=== PATIENT | female | born 1990 | race Caucasian/White ===

== ENCOUNTER 2018-08-12 11:02 | Inpatient (IN) | payer BC ==
[2018-08-12] MEDS ORDERED: ISOVUE-370 76%-LOCM 1 ML ONE (11:12)
[2018-08-12 11:53] LABS: #Eosinphils 0.2 thou/uL (0.0-0.7); #Lymphocytes 1.3 thou/uL (1.20-3.40); #Monocytes 0.4 thou/uL (0.11-0.59); #Neutrophils 15.1 thou/uL (1.40-6.50); %Eosinophils 0.9 % (0.0-10.0); %Lymphocytes 7.9 % (21.0-51.0); %Monocytes 2.2 % (0.0-10.0); %Neutrophils 88.9 % (42.0-75.0); Hemoglobin 6.4 g/dL (12.0-16.0); Mean Corpuscular HGB CONC 33.4 g/dL (32.0-36.0); Mean Corpuscular Hemoglobin 28.1 pg (27.0-31.0); Mean Corpuscular Volume 83.9 fL (78.0-98.0); Mean Platelet Volume 7.1 fL (7.4-10.4); Platelet Count 466 thou/uL (130-400); Red Blood Cell (RBC) Count 2.27 mill/uL (4.20-5.40); White Blood Cell (WBC) Count 16.9 thou/uL (4.8-10.8)
[2018-08-12 11:58] LABS: INR-International Normal Ratio 1.1; PTT 25.2 SEC (22.9-36.1); Prothrombin Time 13.8 SEC (12.0-14.7)
[2018-08-12 12:06] LABS: ALT (SGPT) 31 U/L (8-55); AST (SGOT) 21 U/L (5-34); Albumin 4.4 g/dL (3.5-5.0); Alkaline Phosphatase 105 U/L (40-150); Anion Gap 13 mmol/L (10-20); BUN (Urea Nitrogen) 14 mg/dL (7.0-18.7); Bilirubin, Total 3.8 mg/dL (0.2-1.2); Calc. Creatinine Clearance 0 mL/min (70-130); Calcium 9.7 mg/dL (7.8-10.44); Carbon Dioxide 22 mmol/L (22-29); Chloride 106 mmol/L (98-107); Estimated GFR-MDRD 85; Globulin 3.7 g/dL (2.4-3.5); Glucose 256 mg/dL (70-105); Potassium 4.1 mmol/L (3.5-5.1); Protein, Total 8.1 g/dL (6.0-8.3); Sodium 137 mmol/L (136-145)
--- NOTE | 2018-08-12 12:18 | CT ---
BRAIN CT WITHOUT IV CONTRAST: History: Altered mental status. Left frontal headache. FINDINGS: There is evidence for low lying cerebellar tonsils raising concern for the possibility of Chiari I ma lformation. No hydrocephalus. No focal mass or midline shift. No acute hemorrhage. Visualized sinuses and mastoids are clear. IMPRESSION: Evidence for possible low lying cerebellar tonsils and Chiari I type malformation. Consider non-emerg ent follow up brain MRI without IV contrast. Findings were discussed with Dr. Blunt at 12:10 p.m. Brandy CRISTOBAL POS: [facility]
[2018-08-12 12:19] LABS: Bilirubin Negative (Negative); Blood, Urine Negative (Negative); Clarity CLEAR (Clear); Glucose, Urine (Dipstick) 500 mg/dL (Negative); Leukocyte Negative (Negative); Nitrite Negative (Negative); Protein, Urine (Dipstick) Negative (Neg-Trace); Specific Gravity, Urine 1.013 (1.002-1.036)
[2018-08-12 12:23] LABS: Pregnancy Test - Urine (BHCG) Negative (Negative); Pregu Control Background? CLEAR/WHITE (CLR/WHITE); Pregu Control Bar Appear? YES (CONTROL BAR); Specific Gravity 1.013 (1.002-1.036)
[2018-08-12 12:55] LABS: HBCM Index 0.06 S/CO (0-0.79); HBSAg Index 0.23 S/CO (0-0.99); Hep A IgM AB Non-Reactive (NonReactive); Hep A IgM S/CO 0.14 S/CO (0-0.79); Hep B Surf Ag Non-Reactive S/CO (NonReactive); Hep C IgG Ab Non-Reactive (NonReactive); Hep C Index 0.08 S/CO (0-0.79); Hepatitis B Core IgM Abs Non-Reactive (NonReactive)
[2018-08-12] MEDS ORDERED: Nitroglycerin 0.4 MG TAB (25 Tab Bottle) SL PRN (13:57)
[2018-08-12] MEDS ORDERED: Bisacodyl 5 MG TAB PO PRN (13:57)
[2018-08-12] MEDS ORDERED: hydrALAZINE 20 MG/ML VIAL SLOW IVP PRN (13:57)
[2018-08-12] MEDS ORDERED: Acetaminophen 325 MG TAB PO PRN (13:57)
[2018-08-12] MEDS ORDERED: Bisacodyl 10 MG SUPP PR PRN (13:57)
[2018-08-12] MEDS ORDERED: Senokot S 8.6-50 MG TAB PO PRN (13:57)
[2018-08-12] MEDS ORDERED: Ondansetron PF 4 MG/2 ML Vial IVP PRN (13:57)
[2018-08-12 14:29] LABS: Amphetamine Not Detected (NotDetected); Barbiturates Screen Not Detected (NotDetected); Benzodiazepine Screen Not Detected (NotDetected); Cocaine Metabolite Screen Not Detected (NotDetected); Medtox Control Line Valid? VALID (VALID); Medtox Reader # READER 1; Methadone Not Detected (NotDetected); Methamphetamine Not Detected (NotDetected); Opiate Screen Not Detected (NotDetected); Oxycodone Screen Not Detected (NotDetected); Phencyclidine (PCP) Not Detected (NotDetected); THC/Cannabinoid Screen Not Detected (NotDetected); Tricyclic Screen Not Detected (NotDetected)
[2018-08-12 16:25] LABS: Mean Corpuscular HGB CONC 33.4 g/dL (32.0-36.0); Mean Platelet Volume 7.1 fL (7.4-10.4); Platelet Count 445 thou/uL (130-400); RBC Distribution Width 14.9 % (11.5-14.5); White Blood Cell (WBC) Count 19.6 thou/uL (4.8-10.8)
[2018-08-12 16:42] LABS: Anisocytosis SLIGHT = 6-15 cells (100X) (0-5/hpf); Band 11 % (5-11); Lymphocytes 11 % (21-51); MDiff Complete? YES; Monocytes 4 % (0-10); Myelocyte 1 % (0-0); Neutrophil 73 % (42-75); Ovalocytes SLIGHT = 2-5 cells (100X) (0-1/hpf); Platelet Morphology Comment Appears Increased; Polychromasia MODERATE = 3-4 cells (100X) (0-2/hpf)
--- NOTE | 2018-08-12 17:07 | HP ---
PRIMARY CARE PHYSICIAN: None. CHIEF COMPLAINT: Weakness, dark urine, and shortness of breath. HISTORY OF PRESENTING ILLNESS: Ms. Rey is a very pleasant 28-year-old female without any significant past medical history, who presented to the emergency room from Urgent Care. History is mainly obtained by the patient herself and the electronic medical records have been reviewed. Ms. Rey reports that she has been feeling somewhat weak and tired lately. She has been noticing some very dark urine which looked brown in nature and presented to Urgent Care. She was diagnosed as having urinary tract infection and was prescribed Bactrim. She reports that she only took one dose, but her symptoms progressed even before she started the medication. She started to get pale and yellow and it got worse and she came to the ER today. In the emergency room, she was found to be hemodynamically stable, but however, she had dramatic anemia with a hemoglobin of 6.4 with elevated reticulocyte count. She also was found to have elevated bilirubin, which was largely indirect in nature, elevated LDH. Her PT, PTT, and INR were unremarkable. Urine had no blood or bilirubin in it. She was diagnosed as having hemolytic anemia of unknown chronicity and is now being admitted for further evaluation and care. She has been somewhat tachycardic with heart rate in in the emergency room. She has received 1 unit of packed RBC in the ER. She denies any blood in her stools, any black-colored stools. She denies any coughing or vomiting up of blood. Her periods are irregular and she had one episode of menorrhagia two months ago when she had excessive bleeding for almost a month, but that has stopped two months ago. She denies any recent sick contacts or any acute illnesses recently. The patient endorses on and off headaches for the last few weeks. PAST MEDICAL HISTORY: None. Reviewed with the patient. PAST SURGICAL HISTORY: None. Reviewed with the patient. FAMILY HISTORY: Significant for multiple cancers in her family including lung cancer, breast cancer, and leukemia in her grandfather. Multiple family members with diabetes and hypothyroidism. She also has had one sister who had cholecystectomy for gallstones 10 years ago. Denies any family history of bleeding or clotting disorders. No family history of inheritable diseases. SOCIAL HISTORY: She has one child and is currently working. No history of drug, tobacco, or alcohol abuse. ALLERGIES: NO KNOWN MEDICATION ALLERGIES. CURRENT MEDICATIONS: None. REVIEW OF SYSTEMS: A 12-point review of system is done and it is negative except for those mentioned in the history and physical. LABORATORY DATA: Her CBC shows WBCs of 16.9 with 88% neutrophils, hemoglobin 6.4, and reticulocyte count 11. Coagulation studies within normal limits. Serum chemistries show glucose 256, calcium 9.7, total bilirubin 3.8 with direct bilirubin 0.9. Liver enzymes unremarkable. LDH 281. Urinalysis showed glucosuria, ketonuria. Urine drug screen negative. Urine test negative. Serology for acute hepatitis negative. CT scan of the brain shows incidental findings of low cerebellar tonsils and Chiari type 1 malformation. PHYSICAL EXAMINATION: VITAL SIGNS: Heart rate anywhere from to 115. Blood pressure systolic 138 to 170 with diastolic blood pressure anywhere from 90 to 110. Oxygen saturation 98% on room air. GENERAL: No acute distress. Awake, alert, and oriented x3. She does appear pale and jaundiced at the same time. HEENT: Conjunctival pallor and scleral icterus, mild, noticed. No oropharyngeal exudate or erythema. Head is normocephalic and atraumatic. Pupils are equal and reactive to light and accommodation. Extraocular movement intact. NECK: Supple without any lymphadenopathy, JVD, or bruit. CHEST: Clear to auscultation without any wheezing, rales or rhonchi. HEART: Rate and rhythm regular without any murmurs, rubs, or gallops. ABDOMEN: Obese, soft, nontender, and nondistended. Positive bowel sounds. EXTREMITIES: Free of any cyanosis, clubbing, or edema. NEUROLOGICAL: Nonfocal. SKIN: Free of any rashes or bruises. Feels warm and dry to touch. PSYCHIATRIC: Normal affect. IMPRESSION AND PLAN: 1. Acute anemia due to hemolysis. The etiology is rather unclear at this point. She does not have any evidence to suggest disseminated intravascular coagulation or thrombotic thrombocytopenic purpura. No family history of hereditary history to suggest intrinsic membrane problems like hereditary spherocytosis or G6PD deficiency. We will send the smear for peripheral blood smear by review by pathologist to look for Saurabh bodies, bite cells, schistocytes, etc. We will request consultation with Hematology as well. At this time, we will also check out autoimmune panel with Wan test and CÉSAR screening. Haptoglobin levels have also been sent. We will check for mycoplasma IgG and IgM to rule out infectious causes. She will be started on gentle IV fluids and we will monitor H and H every 6 hours. She has received 1 unit of packed RBCs in the ER and we will maintain the hemoglobin level above 7 at this time. Further management will depend upon further investigations and her clinical course. She was not found to have any active bleeding ongoing at this time. We will also obtain a CT scan of the abdomen and pelvis without contrast to rule out splenomegaly or any lymphadenopathy to rule out occult cancers. Has no systemic symptoms or weight loss. 2. Leukocytosis with left shift. No evidence of infection at this time. Etiology is unclear. Likely reactive leukemoid reaction. We will repeat labs in the morning. 3. Hyperglycemia. We will check hemoglobin A1c given her significant family history of diabetes. 4. Morbid obesity. 5. Jaundice, secondary to unconjugated hyperbilirubinemia. Treat the underlying cause. 6. Deep venous thrombosis and gastrointestinal prophylaxis. We will only use SCDs and avoid any therapeutic deep vein thrombosis prophylaxis. 7. Disposition: Ms. Rey is currently being admitted to [facility] with acute hemolytic anemia and hemodynamic instability. Estimated length of stay at this time is at least 2 to 3 midnights. Further management will depend upon her clinical course. Job ID: [id number]
[2018-08-12] MEDS: Sodium Chloride 0.9% 1,000 ML IV SCH (17:34)
--- NOTE | 2018-08-12 17:42 | CT ---
CT ABDOMEN AND PELVIS WITH CONTRAST: 08/12/18 Multiple axial tomograms obtained through the abdomen and pelvis with IV enhancement. INDICATIONS: Hemolytic anemia. Splenomegaly/lymphoma. FINDINGS: The lung bases are clear. Liver unremarkable. The spleen size is upper normal measured at up to 14 cm. Pancreas unremarkable. A drenal glands normal. Kidneys unremarkable. Small bowel loops appear normal. Scattered small divertic favian are seen in the left colon. Aorta is normal in appearance. There is no evidence of adenopathy. Images through pelvis show prominent ovaries with follicles bilaterally. The uterus appears unremarka ble. No free fluid. Urinary bladder unremarkable. Osseous structures unremarkable. IMPRESSION: 1. Borderline splenomegaly. 2. CT abdomen and pelvis otherwise unremarkable. No evidence of adenopathy. POS: [facility]
[2018-08-12 18:08] VITALS: BMI 47.2
[2018-08-12] MEDS ORDERED: predniSONE 20 MG TAB PO SCH ×2 (18:45→21:00)
[2018-08-12 22:44] LABS: Hemoglobin 7.3 g/dL (12.0-16.0)
[2018-08-13 00:36] LABS: Hemoglobin 7.2 g/dL (12.0-16.0)
--- NOTE | 2018-08-13 01:37 | CON ---
DATE OF CONSULTATION: 08/12/2018 REASON FOR CONSULTATION: Hemolytic anemia. HISTORY OF PRESENT ILLNESS: A 28-year-old female with morbid obesity, presenting to [facility] ER with dark urine, jaundice, fatigue, and dyspnea on exertion. The patient initially presented to [facility] ER two days ago with dark urine and was given Bactrim for UTI. On Thursday morning, her urine was darker, she noticed that her eyes were yellowing, she had more fatigue, lightheadedness, headache, dyspnea on exertion, and took one dose of Bactrim and went back to the ER. Labs were checked at the ER and her hemoglobin was 7.6 and trended down to 6.1. The ER consulted Dr. Lisa over the phone, who recommended steroids and she received IV steroids at that time. She was kept overnight and hemoglobin did not improve and so, she was transferred to [place]. The patient has since received 1 unit of packed red blood cells and is currently pending a second unit. The patient had an ultrasound at [facility] that showed a fatty liver and had a CT of the abdomen and pelvis here that showed borderline splenomegaly with spleen up to 14 cm in size. The patient denies any recent illnesses or recent travel, though states she has been around some sick coworkers. She denies any sore throat, runny nose, congestion, or abdominal pain. She vomited after oral contrast for her CAT scan, otherwise no nausea or vomiting, no diarrhea or constipation. The only medicine she is on is control and she will take the occasional ibuprofen. She denies any herbal medicines or history of autoimmune disease. She has a family history of hypothyroidism, however, it is unsure if any of these are due to Kaykay disease. REVIEW OF SYSTEMS: A 10-point review of systems negative except as per HPI. PAST MEDICAL HISTORY: Morbid obesity. PAST SURGICAL HISTORY: None. FAMILY HISTORY: No family history of anemia or autoimmune disease known. Family history of lung cancer and breast cancer as well as leukemia in her grandfather. There is diabetes in her family though that she denies type 1 diabetes. SOCIAL HISTORY: One child, currently working. No tobacco, alcohol, or illicit drug use. No herbal medications. ALLERGIES: NO KNOWN MEDICATION ALLERGIES. CURRENT MEDICATIONS: Reviewed. PHYSICAL EXAMINATION: VITAL SIGNS: Temperature 98.1, pulse 123, respirations 18, saturating 97% on room air, blood pressure 138/95. GENERAL APPEARANCE: The patient is lying in bed, in no acute distress. HEENT: Normocephalic and atraumatic. Mild scleral icterus is present. CARDIOVASCULAR: Normal S1 and S2 with regular rhythm and rate without murmurs, rubs, or gallops. Mild tachycardia is present. LUNGS: Respirations are clear to auscultation bilaterally. ABDOMEN: Obese, but soft and nontender without any palpable hepatosplenomegaly. EXTREMITIES: No edema. LYMPHATICS: No palpable lymphadenopathy. SKIN: No rashes or bruises. NEUROLOGIC: Cranial nerves 2 through 12 are grossly intact and otherwise nonfocal. PSYCHIATRIC: Awake, alert, and oriented x3. LABORATORY DATA: Hemoglobin at [facility] 7.6 down to 6.1 and 6.4 on admission to [place] and currently 7.0, status post 1 unit of packed red blood cells. White blood cells 19.6, platelets 445. Retic count 11.0. Glucose 256. Total bilirubin 3.8, direct bilirubin 0.9, AST 21, ALT 31, alkaline phosphatase 105. LDH 281. Hepatitis panel negative. Urine shows 500 glucose and 40 ketones. IMAGING DATA: Ultrasound at [facility] showed hepatic steatosis, enlarged liver. CT scan at [place] shows an unremarkable liver, but does show spleen size in the upper normal, measured about 14 cm, consistent with borderline splenomegaly. 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 There is currently an unclear cause of her autoimmune hemolytic anemia, which can sometimes be caused by medications, specifically antibiotics, however, this started before she ever took a dose of Bactrim. She may have an underlying autoimmune disease given history of hypothyroidism in the family or some other underlying autoimmune disease process. CÉSAR screening is currently pending at this time. The patient is status post a dose of IV steroids at [facility] and I will start prednisone 1 mg/kg at this time. If the patient does not receive or improve with steroids, she may benefit from IVIG or may need rituximab. The patient is currently tachycardic, but otherwise stable and is receiving second unit of blood and would recommend transfusions to keep hemoglobin above 7. Recommend gastrointestinal prophylaxis while on steroids and I have started Protonix. We will need to aggressively monitor glucose as she has glucose in the urine and elevated glucose in blood with a large family history of diabetes and hemoglobin A1c has been checked to see if she does have diabetes. The patient's leukocytosis is likely leukemoid due to hemolysis as well as a dose of IV steroids she got at [facility], as her white blood cells there were only 12. We will follow along with you and monitor her response to steroids. Thank you for this consult. Job ID: [id number]
[2018-08-13] MEDS: Sodium Chloride 0.9% 1,000 ML IV SCH ×2 (06:54→23:50)
[2018-08-13 08:13] LABS: ALT (SGPT) 24 U/L (8-55); AST (SGOT) 18 U/L (5-34); Albumin 4.1 g/dL (3.5-5.0); Alkaline Phosphatase 94 U/L (40-150); Anion Gap 14 mmol/L (10-20); BUN (Urea Nitrogen) 15 mg/dL (7.0-18.7); Bilirubin, Total 3.2 mg/dL (0.2-1.2); Calc. Creatinine Clearance 273 mL/min (70-130); Calcium 9.2 mg/dL (7.8-10.44); Carbon Dioxide 20 mmol/L (22-29); Chloride 107 mmol/L (98-107); Estimated GFR-MDRD Greater than 90; Globulin 3.2 g/dL (2.4-3.5); Glucose 254 mg/dL (70-105); Potassium 4.3 mmol/L (3.5-5.1); Protein, Total 7.3 g/dL (6.0-8.3); Sodium 137 mmol/L (136-145)
[2018-08-13 08:34] LABS: Hemoglobin 7.4 g/dL (12.0-16.0); Mean Corpuscular HGB CONC 34.3 g/dL (32.0-36.0); Mean Corpuscular Hemoglobin 29.6 pg (27.0-31.0); Mean Corpuscular Volume 86.3 fL (78.0-98.0); Mean Platelet Volume 7.2 fL (7.4-10.4); Platelet Count 420 thou/uL (130-400); RBC Distribution Width 15.2 % (11.5-14.5); Red Blood Cell (RBC) Count 2.51 mill/uL (4.20-5.40); White Blood Cell (WBC) Count 20.5 thou/uL (4.8-10.8)
[2018-08-13 09:25] LABS: #Eosinphils 0.2 thou/uL (0.0-0.7); #Lymphocytes 2.1 thou/uL (1.20-3.40); #Monocytes 0.6 thou/uL (0.11-0.59); #Neutrophils 18.2 thou/uL (1.40-6.50); %Basophils 0.1 % (0.0-1.0); %Eosinophils 0.7 % (0.0-10.0); %Lymphocytes 9.9 % (21.0-51.0); %Monocytes 2.9 % (0.0-10.0); %Neutrophils 86.4 % (42.0-75.0); Band 11 % (5-11); Lymphocytes 5 % (21-51); MDiff Complete? YES; Monocytes 7 % (0-10); Neutrophil 77 % (42-75); Polychromasia SLIGHT = 2-3 cells (100X) (0-2/hpf)
[2018-08-13] MEDS: predniSONE 50 MG TAB PO SCH (10:03)
[2018-08-13] MEDS: predniSONE 20 MG TAB PO SCH (10:03)
[2018-08-13] MEDS: Aspirin 325 MG TAB PO SCH (10:06)
[2018-08-13] MEDS ORDERED: Mag-Al 1200 mg/1200 mg/30 ML UDCUP PO PRN (12:59)
[2018-08-13 13:35] LABS: ANA Symphony (Qualitative) Negative (Negative); ANA Symphony (Quantitative) Less than 0.1 Ratio (< 0.7 Negative); dsDNA IgG Antibody Less than 0.5 IU/mL (<10 Negative)
--- NOTE | 2018-08-13 14:32 | PDOC.PN ---
- Subjective Encounter Start Date: 08/13/18 Encounter Start Time: 14:29 Subjective: feels better,still weak though - Objective MAR Reviewed: Yes Vital Signs & Weight: Vital Signs (12 hours) Temp Pulse Resp BP Pulse Ox 08/13/18 11:57 98.6 F 109 H 20 136/87 97 08/13/18 08:06 98.7 F 113 H 18 130/80 95 08/13/18 04:00 97.9 F 66 18 130/57 L 93 L Weight Weight 310 lb 12.8 oz I&O: 08/12/18 08/13/18 08/14/18 06:59 06:59 06:59 Intake Total 2140 Balance 2140 Result Diagrams: 08/13/18 07:17 08/13/18 07:17 Additional Labs: Laboratory Tests 08/12/18 08/12/18 08/12/18 11:34 16:09 22:31 Hgb 6.4 L 7.0 L 7.3 L 08/13/18 08/13/18 00:20 07:17 Hgb 7.2 L 7.4 L Phys Exam - Physical Examination Constitutional: NAD pale HEENT: PERRLA, moist MMs, sclera anicteric, oral pharynx no lesions Neck: no nodes, no JVD, supple, full ROM Respiratory: no wheezing, no rales, no rhonchi, clear to auscultation bilateral Cardiovascular: RRR, no significant murmur, no rub Gastrointestinal: soft, non-tender, no distention, positive bowel sounds Musculoskeletal: no edema, pulses present Neurological: non-focal, normal sensation, moves all 4 limbs Psychiatric: normal affect, A&O x 3 Skin: no rash Dx/Plan (1) Autoimmune hemolytic anemia Code(s): D59.1 - OTHER AUTOIMMUNE HEMOLYTIC ANEMIAS Status: Acute Comment: Warm (2) Leucocytosis Code(s): D72.829 - ELEVATED WHITE BLOOD CELL COUNT, UNSPECIFIED Status: Acute Qualifiers: Leukocytosis type: leukemoid reaction Qualified Code(s): D72.823 - Leukemoid reaction (3) Hyperglycemia Code(s): R73.9 - HYPERGLYCEMIA, UNSPECIFIED Status: Chronic Comment: Pre Diabetes. Education about diet and execrcise program (4) Morbid obesity with BMI of 45.0-49.9, adult Code(s): E66.01 - MORBID (SEVERE) OBESITY DUE TO EXCESS CALORIES; Z68.42 - BODY MASS INDEX (BMI) 45.0-49.9, ADULT Status: Chronic - Plan plan discussed w/ family cont prednisone at high dose -: unclear etiology.Unlikley lymphoproliferative Ds -: Op f/u w hematolgy . -: rmains HD stable & H/H stable for now.cont to monitor for response to stero * . Review of Systems - Review of Systems Constitutional: weakness. negative: fever, chills, sweats, malaise, other Respiratory: negative: Cough, Dry, Shortness of Breath, Hemoptysis, SOB with Excertion, Pleuritic Pain, Sputum, Wheezing Cardiovascular: negative: chest pain, palpitations, orthopnea, paroxysmal nocturnal dyspnea, edema, light headedness, other Gastrointestinal: negative: Nausea, Vomiting, Abdominal Pain, Diarrhea, Constipation, Melena, Hematochezia, Other Genitourinary: negative: Dysuria, Frequency, Incontinence, Hematuria, Retention , Other Musculoskeletal: negative: Neck Pain, Shoulder Pain, Arm Pain, Back Pain, Hand Pain, Leg Pain, Foot Pain, Other Neurological: negative: Weakness, Numbness, Incoordination, Change in Speech, Confusion, Seizures, Other - Medications/Allergies Allergies/Adverse Reactions: Allergies Allergy/AdvReac Type Severity Reaction Status Date / Time No Known Allergies Allergy Unverified 08/12/18 16:16 Medications: Current Medications Acetaminophen (Tylenol) 650 mg PO Q4H PRN PRN Reason: Headache/Fever/Mild Pain (1-3) Last Admin: 08/12/18 17:36 Dose: 650 mg Al Hydroxide/Mg Hydroxide (Maalox) 30 ml PO Q4H PRN PRN Reason: Heartburn or Indigestion Last Admin: 08/13/18 13:42 Dose: 30 ml Aspirin (Aspirin) 325 mg PO DAILY [facility] Last Admin: 08/13/18 10:06 Dose: 325 mg Bisacodyl (Dulcolax) 10 mg PO DAILYPRN PRN PRN Reason: Constipation Last Admin: 08/13/18 06:13 Dose: 10 mg Bisacodyl (Dulcolax) 10 mg MD DAILYPRN PRN PRN Reason: Constipation Hydralazine HCl (Apresoline) 10 mg SLOW IVP Q4H PRN PRN Reason: SBP > 180 and HR < 70 Sodium Chloride (Normal Saline 0.9%) 1,000 mls @ 70 mls/hr IV .[id number] [facility] Last Admin: 08/13/18 06:54 Dose: 1,000 mls Nitroglycerin (Nitrostat) 0.4 mg SL Q5MIN PRN PRN Reason: Chest Pain Ondansetron HCl (Zofran) 4 mg IVP Q6H PRN PRN Reason: Nausea/Vomiting Pantoprazole Sodium (Protonix) 40 mg PO DAILY [facility] Last Admin: 08/13/18 10:04 Dose: 40 mg Prednisone (Prednisone) 100 mg PO 0900 [facility] Last Admin: 08/13/18 10:03 Dose: 100 mg Prednisone (Prednisone) 40 mg PO 0900 [facility] Last Admin: 08/13/18 10:03 Dose: 40 mg Senna/Docusate Sodium (Senokot S) 2 tab PO BID PRN PRN Reason: Constipation Last Admin: 08/12/18 20:56 Dose: 2 tab Sodium Chloride (Flush - Normal Saline) 10 ml IVF Q12HR [facility] Last Admin: 08/13/18 10:06 Dose: 10 ml Sodium Chloride (Flush - Normal Saline) 10 ml IVF PRN PRN PRN Reason: Saline Flush
[2018-08-13] MEDS ORDERED: Temazepam 15 MG CAP PO ONE (21:00)
[2018-08-14 08:04] LABS: Anisocytosis MODERATE=16-30 cells (100X) (0-5/hpf); Band 7 % (5-11); Hemoglobin 5.8 g/dL (12.0-16.0); Lymphocytes 8 % (21-51); MDiff Complete? YES; Mean Corpuscular HGB CONC 33.5 g/dL (32.0-36.0); Mean Corpuscular Volume 86.6 fL (78.0-98.0); Mean Platelet Volume 7.1 fL (7.4-10.4); Metamyelocyte 1 % (0-0); Microcytosis MODERATE=15-30 cells (100X) (0-5/hpf); Monocytes 9 % (0-10); Neutrophil 64 % (42-75); Nucleated RBC 3 % (0); Platelet Count 405 thou/uL (130-400); Platelet Morphology Comment Appears Increased; Polychromasia SLIGHT = 2-3 cells (100X) (0-2/hpf); RBC Distribution Width 15.9 % (11.5-14.5); Reactive Lymphocytes 11 % (0-10); Red Blood Cell (RBC) Count 1.98 mill/uL (4.20-5.40); White Blood Cell (WBC) Count 18.2 thou/uL (4.8-10.8)
[2018-08-14] MEDS: Folic Acid 1 MG TAB PO SCH (08:15)
[2018-08-14] MEDS: Aspirin 325 MG TAB PO SCH (08:15)
[2018-08-14] MEDS: predniSONE 20 MG TAB PO SCH ×2 (08:15→16:52)
[2018-08-14] MEDS: predniSONE 50 MG TAB PO SCH ×2 (08:15→16:52)
--- NOTE | 2018-08-14 08:52 | PDOC.PN ---
- Subjective Encounter Start Date: 08/14/18 Encounter Start Time: 08:51 Subjective: no new comlaints. denies any Cp/SOB/Headache -: no blood in stools or urine - Objective MAR Reviewed: Yes Vital Signs & Weight: Vital Signs (12 hours) Temp Pulse Resp BP BP Pulse Ox 08/14/18 08:07 98.7 F 112 H 16 136/86 98 08/14/18 06:46 98.3 F 104 H 16 117/78 94 L 08/14/18 00:00 98.3 F 104 H 100 H 126/86 16 L 08/13/18 21:41 98.3 F 108 H 16 117/67 97 Weight Admit Weight 310 lb 12.8 oz Weight 310 lb 12.8 oz I&O: 08/13/18 08/14/18 08/15/18 06:59 06:59 06:59 Intake Total 2140 540 Balance 2140 540 Result Diagrams: 08/14/18 06:19 08/13/18 07:17 Additional Labs: Laboratory Tests 08/12/18 08/13/18 08/14/18 11:34 07:17 06:19 Total Bilirubin 3.8 H 3.2 H 3.3 H TSH 3rd Generation 08/14/18 06:19 Total Bilirubin TSH 3rd Generation 1.2278 Phys Exam - Physical Examination Constitutional: NAD pale HEENT: PERRLA, moist MMs, sclera anicteric, oral pharynx no lesions Respiratory: no wheezing, no rales, no rhonchi, clear to auscultation bilateral Cardiovascular: RRR, no significant murmur Gastrointestinal: soft, non-tender, no distention, positive bowel sounds Musculoskeletal: no edema, pulses present Neurological: non-focal, normal sensation, moves all 4 limbs Psychiatric: normal affect, A&O x 3 Skin: no rash Dx/Plan (1) Autoimmune hemolytic anemia Code(s): D59.1 - OTHER AUTOIMMUNE HEMOLYTIC ANEMIAS Status: Acute Comment: Warm (2) Leucocytosis Code(s): D72.829 - ELEVATED WHITE BLOOD CELL COUNT, UNSPECIFIED Status: Acute Qualifiers: Leukocytosis type: leukemoid reaction Qualified Code(s): D72.823 - Leukemoid reaction (3) Hyperglycemia Code(s): R73.9 - HYPERGLYCEMIA, UNSPECIFIED Status: Chronic Comment: Pre Diabetes. Education about diet and execrcise program (4) Morbid obesity with BMI of 45.0-49.9, adult Code(s): E66.01 - MORBID (SEVERE) OBESITY DUE TO EXCESS CALORIES; Z68.42 - BODY MASS INDEX (BMI) 45.0-49.9, ADULT Status: Chronic (5) Chiari I malformation Status: Chronic - Plan plan discussed w/ family, DVT proph w/SCDs transfused 1 unit PRBc.discussed w Oncology & will stop more transfusion -: monitor H/H -: cont steroids -per Hematology -: TSH NL.tachy likley due to anemia.cont IVF -: WBC improving.no evidence of infection.likley d/t steroids * . Review of Systems - Review of Systems Constitutional: weakness. negative: fever, chills, sweats, malaise, other ENT: negative: Ear Pain, Ear Discharge, Nose Pain, Nose Discharge, Nose Congestion, Mouth Pain, Mouth Swelling, Throat Pain, Throat Swelling, Other Respiratory: negative: Cough, Dry, Shortness of Breath, Hemoptysis, SOB with Excertion, Pleuritic Pain, Sputum, Wheezing Cardiovascular: negative: chest pain, palpitations, orthopnea, paroxysmal nocturnal dyspnea, edema, light headedness, other Gastrointestinal: negative: Nausea, Vomiting, Abdominal Pain, Diarrhea, Constipation, Melena, Hematochezia, Other Genitourinary: negative: Dysuria, Frequency, Incontinence, Hematuria, Retention , Other Neurological: negative: Weakness, Numbness, Incoordination, Change in Speech, Confusion, Seizures, Other - Medications/Allergies Allergies/Adverse Reactions: Allergies Allergy/AdvReac Type Severity Reaction Status Date / Time No Known Allergies Allergy Unverified 08/12/18 16:16 Medications: Current Medications Acetaminophen (Tylenol) 650 mg PO Q4H PRN PRN Reason: Headache/Fever/Mild Pain (1-3) Last Admin: 08/12/18 17:36 Dose: 650 mg Al Hydroxide/Mg Hydroxide (Maalox) 30 ml PO Q4H PRN PRN Reason: Heartburn or Indigestion Last Admin: 08/13/18 13:42 Dose: 30 ml Aspirin (Aspirin) 325 mg PO DAILY [facility] Last Admin: 08/14/18 08:15 Dose: 325 mg Bisacodyl (Dulcolax) 10 mg PO DAILYPRN PRN PRN Reason: Constipation Last Admin: 08/13/18 06:13 Dose: 10 mg Bisacodyl (Dulcolax) 10 mg CA DAILYPRN PRN PRN Reason: Constipation Folic Acid (Folvite) 1 mg PO DAILY [facility] Last Admin: 08/14/18 08:15 Dose: 1 mg Hydralazine HCl (Apresoline) 10 mg SLOW IVP Q4H PRN PRN Reason: SBP > 180 and HR < 70 Sodium Chloride (Normal Saline 0.9%) 1,000 mls @ 70 mls/hr IV .[id number] [facility] Last Admin: 08/13/18 23:50 Dose: 1,000 mls Nitroglycerin (Nitrostat) 0.4 mg SL Q5MIN PRN PRN Reason: Chest Pain Ondansetron HCl (Zofran) 4 mg IVP Q6H PRN PRN Reason: Nausea/Vomiting Pantoprazole Sodium (Protonix) 40 mg PO DAILY [facility] Last Admin: 08/14/18 08:16 Dose: 40 mg Prednisone (Prednisone) 100 mg PO 0900 [facility] Last Admin: 08/14/18 08:15 Dose: 100 mg Prednisone (Prednisone) 40 mg PO 0900 [facility] Last Admin: 08/14/18 08:15 Dose: 40 mg Senna/Docusate Sodium (Senokot S) 2 tab PO BID PRN PRN Reason: Constipation Last Admin: 08/12/18 20:56 Dose: 2 tab Sodium Chloride (Flush - Normal Saline) 10 ml IVF Q12HR [facility] Last Admin: 08/14/18 08:16 Dose: Not Given Sodium Chloride (Flush - Normal Saline) 10 ml IVF PRN PRN PRN Reason: Saline Flush
[2018-08-14] MEDS: Sodium Chloride 0.9% 1,000 ML IV SCH ×2 (16:53)
[2018-08-14] MEDS ORDERED: predniSONE 50 MG TAB PO SCH (17:00)
[2018-08-14] MEDS ORDERED: predniSONE 20 MG TAB PO SCH (17:00)
[2018-08-14] MEDS ORDERED: Temazepam 15 MG CAP PO SCH (23:45)
[2018-08-14] MEDS ORDERED: Temazepam 15 MG CAP PO PRN (23:47)
[2018-08-15] MEDS: Sodium Chloride 0.9% 1,000 ML IV SCH ×2 (01:42→09:33)
[2018-08-15 08:16] LABS: Hemoglobin 8.2 g/dL (12.0-16.0); Mean Corpuscular HGB CONC 33.2 g/dL (32.0-36.0); Mean Corpuscular Hemoglobin 28.8 pg (27.0-31.0); Mean Corpuscular Volume 86.6 fL (78.0-98.0); Mean Platelet Volume 6.9 fL (7.4-10.4); Platelet Count 445 thou/uL (130-400); RBC Distribution Width 15.4 % (11.5-14.5); Red Blood Cell (RBC) Count 2.83 mill/uL (4.20-5.40)
[2018-08-15 08:18] VITALS: BP 133/89; TEMP 98.5
[2018-08-15 08:33] LABS: Band 5 % (5-11); Lymphocytes 17 % (21-51); MDiff Complete? YES; Microcytosis MODERATE=15-30 cells (100X) (0-5/hpf); Monocytes 11 % (0-10); Neutrophil 62 % (42-75); Platelet Morphology Comment Appears Adequate; Polychromasia MODERATE = 3-4 cells (100X) (0-2/hpf); Reactive Lymphocytes 5 % (0-10); White Blood Cell (WBC) Count 27.7 thou/uL (4.8-10.8)
[2018-08-15] MEDS: Aspirin 325 MG TAB PO SCH (09:32)
[2018-08-15] MEDS: Folic Acid 1 MG TAB PO SCH (09:32)
[2018-08-15] MEDS: predniSONE 50 MG TAB PO SCH (09:32)
[2018-08-15] MEDS: predniSONE 20 MG TAB PO SCH (09:32)
--- NOTE | 2018-08-15 13:43 | DIS ---
DATE OF ADMISSION: 08/12/2018 DATE OF DISCHARGE: 08/15/2018 CONDITION: At the time of discharge, stable. PRIMARY CARE PHYSICIAN: Dr. Ira Barrios. IN-HOUSE CONSULTATION: Hematology, Dr. Lisa. PROCEDURES DONE IN HOSPITAL: 1. CT scan of the brain, which shows low-lying cerebellar tonsil, Chiari type I malformation. 2. CT scan of the abdomen and pelvis, which shows borderline splenomegaly, otherwise unremarkable. DISCHARGE DIAGNOSES: 1. Autoimmune hemolytic anemia. 2. Morbid obesity with a BMI of 47. 3. Leukemoid reaction leading to leukocytosis also secondary to steroid. 4. Hyperglycemia without evidence of diabetes. 5. Chiari type I malformation. DISCHARGE MEDICATION: 1. Prednisone 70 mg p.o. b.i.d. 2. Protonix 40 mg daily. 3. Folic acid 1 mg daily. HISTORY OF PRESENTING ILLNESS: Ms. Rey is a very pleasant 28-year-old female without any significant past medical history, who presented to the emergency room with complaints of generalized weakness, dark urine, and shortness of breath. She was found to have a hemoglobin of 6.4 with elevated reticulocyte count. She was otherwise hemodynamically stable. She did have evidence of hyperbilirubinemia, elevated LDH with normal coagulation indices. She was transfused with 2 units of packed RBCs and was given a dose of IV steroids. She was otherwise not having any active occult bleeding. She was admitted for further evaluation and care. She had a CT scan done in the ER for complaints of headaches and was found to have Chiari type I malformation. She otherwise had no neurological deficits. HOSPITAL COURSE: The patient's H and H were followed closely. She required transfusion again a day after her admission when her hemoglobin dropped down to 5.8. Hematology/Oncology was consulted and her Wan test was checked, which was positive. Multiple other tests were ordered, which were still pending at the time of discharge. Eventually, her hemoglobin improved to 8.2 this morning and she was instructed to continue on prednisone 70 mg p.o. b.i.d. and follow up with Dr. Lisa in her clinic tomorrow. She did have evidence of leukocytosis, which was thought to be secondary to steroid administration. She was found to be hyperglycemic, but A1c was checked and was normal. Dietitian was consulted and she was educated about healthier diet options. Weight loss has been advised strictly. Her BMI at this time is 47. As of this morning, she is feeling well and has no new symptoms or any symptoms at all. She is eager to go home. Discharge plan was discussed with the patient and her multiple family members in the room. They verbalized understanding. PHYSICAL EXAMINATION: VITAL SIGNS: This morning, temperature 98.5, heart rate 107, respirations 16, saturating 100% on room air, and blood pressure 133/89. GENERAL: No acute distress. Awake, alert, and oriented x3. HEENT: She does appear somewhat pale and mildly jaundiced. CHEST: Clear to auscultation bilaterally. HEART: Rate and rhythm are regular. EXTREMITIES: Free of any cyanosis, clubbing, or edema. LABORATORY DATA: Her CBC shows hemoglobin of 8.2, hematocrit 24.5, and platelet count of 445, and WBCs 27.7. All indicative of ongoing bone marrow response to the hemolysis. Blood sugar 254. Ferritin elevated appropriately at 1322, TIBC low at 260. Bilirubin on admission 3.2, on discharge 3.8. TSH normal. DISCHARGE INSTRUCTIONS: She will follow with primary care physician and Hematology in the outpatient setting. Prescriptions were provided. TIME SPENT: Total time spent in the discharge of this patient, 32 minutes. Job ID: [id number]
[2018-08-17 00:09] LABS: Mycoplasma pneumoniae IgG AB 656 U/mL (0-99); Mycoplasma pneumoniae IgM AB Less than 770 U/mL (0-769)
== END 2018-08-15 11:17 | disposition home or self-care (01) | DRG 808 ==
LOC: ERS 11:02 → ERHOLD 13:27 → T4-B 17:14
PROVIDERS: ADMIT Internal Medicine; ATTEND Internal Medicine
PROC: 30233N1 Transfusion of Nonautologous Red Blood Cells into Peripheral Vein, Percutaneous Approach (ICD-10-PCS; principal; 2018-08-12)
DX: D59.1 Other autoimmune hemolytic anemias (principal); G93.5 Compression of brain; Z68.42 Body mass index [BMI] 45.0-49.9, adult; E66.01 Morbid (severe) obesity due to excess calories; R73.03 Prediabetes; D72.823 Leukemoid reaction; E80.6 Other disorders of bilirubin metabolism; R82.998 Other abnormal findings in urine; Z83.49 Family history of other endocrine, nutritional and metabolic diseases
CPT/HCPCS: 36415; 36430; 70450; 74177; 80053; 80074; 80306; 81003; 81025; 82247; 82248; 82728; 83010; 83036; 83550; 83615; 84443; 85025; 85046; 85060; 85610; 85730; 86038; 86225; 86850; 86880; 86900; 86901; 90471; 90686; G0008; J7506; P9016

== ENCOUNTER 2018-08-16 21:15 | Inpatient (IN) | payer BC ==
[2018-08-16 22:39] VITALS: BMI 47.1
[2018-08-16] MEDS ORDERED: predniSONE 20 MG TAB PO SCH (22:45)
[2018-08-16] MEDS ORDERED: predniSONE 50 MG TAB PO SCH (22:45)
[2018-08-17] MEDS ORDERED: Bisacodyl 5 MG TAB PO PRN (02:36)
[2018-08-17] MEDS ORDERED: Acetaminophen 650 MG Suppository PR PRN (02:36)
[2018-08-17] MEDS ORDERED: Calcium Carbonate 500 MG ChewTAB PO PRN (02:36)
[2018-08-17] MEDS ORDERED: Acetaminophen 325 MG TAB PO PRN (02:36)
[2018-08-17] MEDS ORDERED: Ondansetron PF 4 MG/2 ML Vial IVP PRN (02:36)
[2018-08-17] MEDS ORDERED: Senokot S 8.6-50 MG TAB PO PRN (02:36)
[2018-08-17] MEDS ORDERED: Ondansetron ODT 4 MG TAB PO PRN (02:36)
[2018-08-17 05:43] LABS: Hemoglobin 5.5 g/dL (12.0-16.0); Mean Corpuscular HGB CONC 35.2 g/dL (32.0-36.0); Mean Corpuscular Hemoglobin 30.2 pg (27.0-31.0); Platelet Count 467 thou/uL (130-400); Red Blood Cell (RBC) Count 1.81 mill/uL (4.20-5.40); White Blood Cell (WBC) Count 26.3 thou/uL (4.8-10.8)
[2018-08-17 05:57] LABS: Band 22 % (5-11); Lymphocytes 9 % (21-51); MDiff Complete? YES; Metamyelocyte 1 % (0-0); Monocytes 9 % (0-10); Neutrophil 59 % (42-75); Platelet Morphology Comment Appears Increased
[2018-08-17 06:11] LABS: Iron 264 ug/dL (50-170); Iron Binding Capacity, Total 260 mcg/dL (265-497)
[2018-08-17 06:42] LABS: Folate (Folic Acid) 8.6 ng/mL (7.0-31.4)
--- NOTE | 2018-08-17 07:17 | HP ---
ADDENDUM PHYSICAL EXAMINATION: VITAL SIGNS: The patient's blood pressure is 143/64, heart rate of 119, temperature of 97.8, respiratory rate of 18, and O2 saturation of 96%. GENERAL: The patient is lying in bed, appears pale, obese, alert, and oriented x3, not in acute distress. HEENT: Normocephalic, atraumatic. Pupils are equally round and reactive to light. Extraocular movements are intact. No scleral icterus. The patient appears pale. Membranes are moist. NECK: Trachea is midline. Full range of motion. No JVD. Supple. LUNGS: Clear to auscultation bilaterally. No wheezing, no rales, no rhonchi appreciated. CARDIAC: Positive S1 and S2. Tachycardic. ABDOMEN: Obese, soft, nontender, and nondistended. Positive bowel sounds in all quadrants. EXTREMITIES: The patient has 5/5 upper extremity strength and 5/5 lower extremity strength. The patient has good pulses bilaterally at the upper and lower extremities. No edema noted. NEUROLOGIC: Cranial nerves 2 through 12 grossly intact. No neurologic deficit noted. SKIN: The patient appears pale. No lesions appreciated. No rashes. Warm, dry, and intact. PSYCHIATRIC: Normal affect. LABORATORY DATA: The patient's labs are pending at this time. ASSESSMENT AND PLAN: This is a 28-year-old female being admitted for; 1. Autoimmune hemolytic anemia. At this point, based on previous labs on the 13, the patient's hemoglobin is 8.2, status post transfusion. At this point, we will order CBC and CMP in the a.m. We will follow up on the results and we will keep hemoglobin above 7. We will continue the patient on prednisone 70 mg t.i.d. The patient's oncologist/assistant property manager is on consult. We will follow up with his recommendations. We will continue the patient on Protonix daily. 2. Morbid obesity. Diet and exercise advised. 3. Deep venous thrombosis and gastrointestinal prophylaxis. DISPOSITION: We will follow up with the patient's assistant property manager/oncologist regarding any further treatments and any update regarding the patient's current diagnosis of autoimmune hemolytic anemia and further treatments. cholecystectomy for gallstones 10 years ago. SOCIAL HISTORY: The patient is only child. Denies any illicit drug use, tobacco use, and alcohol use. The patient lives at home with mom. ALLERGIES: NO KNOWN DRUG ALLERGIES. CURRENT MEDICATIONS: The patient is on; 1. Protonix 40 mg p.o. daily. 2. Prednisone 140 p.o. b.i.d. 3. Folic acid daily. Job ID: [id number]
[2018-08-17] MEDS ORDERED: Famotidine/PF 20 mg/2ml Vial SLOW IVP SCH (09:00)
[2018-08-17] MEDS ORDERED: Famotidine 20 MG TAB PO SCH (09:00)
[2018-08-17] MEDS: Folic Acid 1 MG TAB PO SCH (09:27)
[2018-08-17] MEDS: predniSONE 20 MG TAB PO SCH ×3 (09:27→20:37)
[2018-08-17] MEDS: predniSONE 50 MG TAB PO SCH ×3 (09:27→20:37)
[2018-08-17] MEDS ORDERED: Dextrose 50% Abboject 50 ML SYRINGE SLOW IVP PRN (12:07)
[2018-08-17] MEDS ORDERED: Dextrose 5% in Water 1,000 ML IV PRN (12:07)
--- NOTE | 2018-08-17 12:56 | PRG ---
DATE OF SERVICE: 08/17/2018 SUBJECTIVE: The patient says she feels fine. She has no specific complaints. She does feel some tachycardia with activity and occasionally at rest as well. Otherwise, she has no new complaints. She reports she was not checking her blood sugar at home. OBJECTIVE: VITAL SIGNS: Temperature 97.7, pulse 108 to 119, respirations 18, O2 saturation 98% on room air, and BP 114/56. GENERAL APPEARANCE: Age-appropriate female, obese, in no distress. She is awake, alert, oriented, pleasant, cooperative. HEART: Tachycardic without murmur. LUNGS: Clear bilaterally. EXTREMITIES: Warm and dry. ABDOMEN: Soft. IMPRESSION AND PLAN: 1. Hemolytic anemia. Hemoglobin was 5.5. Blood cell transfusion is pending. It sounds like she is only going to receive 1 unit at a time, given the fact that she is still hemolytic. We will continue with the steroids and Oncology is following as well. 2. Hyperglycemia. The patient has strong family history of diabetes mellitus and she is on a lot of steroids. Her blood sugars on the and , which are on the computer were in the upper 200s in 300s. We will start Accu-Cheks and sliding scale insulin. If that becomes indicated, may need to change her diet to a diabetic diet as well. 3. Per the patient's request, we will give her sleep aid for tonight as well. Job ID: [id number]
--- NOTE | 2018-08-17 15:31 | CON ---
DATE OF CONSULTATION: 08/17/2018 HISTORY OF PRESENT ILLNESS: Ms. Rey is a 28-year-old female, who last week was diagnosed with warm autoimmune hemolytic anemia. She was admitted last week and placed on steroids. She was discharged 1 day prior to admission. At which time, her hemoglobin was up to 8.2 and her bilirubin had gone down. She was feeling much better on that day, but presented back to my office 24 hours later with increasing shortness of breath as well as yellow eyes and hemoglobin 6.1. She was admitted back to the hospital. She was placed back on steroids and the consideration of Rituxan. She was already feeling slightly better today. Her steroid dose was increased. She does have some palpitations and shortness of breath if she moves around at all. She otherwise has no new complaints. She does state that her urine has gotten dark again. PAST MEDICAL HISTORY: Obesity and possible glucose intolerance. CURRENT MEDICATIONS: 1. Tylenol p.r.n. 2. Dulcolax p.r.n. 3. Tums p.r.n. 4. Folic acid 1 mg p.o. daily. 5. Zofran 4 mg p.o. q.6 hours p.r.n. 6. Protonix 40 mg p.o. daily. 7. Prednisone 70 mg p.o. t.i.d. 8. Senokot 2 tablets p.o. b.i.d. ALLERGIES: IODINE. SOCIAL HISTORY: She has a child, lives with her mother and sister, who appeared quite spruce. She denies tobacco or alcohol use. There was no recent antibiotics use and the recent infections prior to this hospitalization last week. FAMILY HISTORY: Noncontributory. REVIEW OF SYSTEMS: Otherwise, 10-point review of systems is negative. Please see the history of present illness. PHYSICAL EXAMINATION: VITAL SIGNS: Temperature 98.0, pulse 119, respirations 16 to 18, O2 sat 100% on room air, and blood pressure 129/69. GENERAL: She is obese, in no acute distress, quite pleasant. HEENT: Extraocular muscles are intact. Sclerae show icterus. NECK: Supple without lymphadenopathy. CARDIOVASCULAR: Regular rhythm, but tachycardiac. LUNGS: Clear to auscultation. ABDOMEN: Obese, but benign. EXTREMITIES: Trace edema. LABORATORY DATA: White blood cell count 26,000, hemoglobin 5.5, MCV 86, platelets 467. Folic acid 8.6. B12 of 398, LDH 287. Ferritin 1322. Hemoglobin A1c 5.0. Total bilirubin on discharge was 3.8 and on the date of admission was 4.5. ASSESSMENT: Ms. Rey is a 28-year-old female with warm autoimmune hemolytic anemia, currently not responding to steroids. Shortness of breath and palpitations. PLAN: 1. We will get for 1 unit of packed red blood cells assuming that we can find some compatible. 2. Increased dose of steroids to 1.5 mg/kg daily. 3. If she is not responding to steroids in the next 24 to 48 hours, we will consider adding Rituxan. 4. We would also reasonable to consider doing a bone marrow biopsy if she does not respond to steroids. We discussed this today. We will consider follow with you. Job ID: [id number]
[2018-08-17 15:59] LABS: Hemoglobin 6.6 g/dL (12.0-16.0)
[2018-08-17] MEDS: HumaLOG 300 UNITS/3 ML VIAL SC PRN (20:36)
[2018-08-17] MEDS: Zolpidem Tartrate 5 MG TAB PO PRN (21:34)
[2018-08-18 04:46] LABS: Hemoglobin 5.4 g/dL (12.0-16.0); Mean Corpuscular HGB CONC 34.9 g/dL (32.0-36.0); Mean Corpuscular Hemoglobin 30.1 pg (27.0-31.0); Mean Corpuscular Volume 86.3 fL (78.0-98.0); Mean Platelet Volume 6.8 fL (7.4-10.4); Platelet Count 410 thou/uL (130-400); Red Blood Cell (RBC) Count 1.79 mill/uL (4.20-5.40); White Blood Cell (WBC) Count 23.7 thou/uL (4.8-10.8)
[2018-08-18 05:04] LABS: ALT (SGPT) 38 U/L (8-55); AST (SGOT) 13 U/L (5-34); Albumin 4.2 g/dL (3.5-5.0); Alkaline Phosphatase 102 U/L (40-150); Anion Gap 14 mmol/L (10-20); BUN (Urea Nitrogen) 23 mg/dL (7.0-18.7); Bilirubin, Total 4.5 mg/dL (0.2-1.2); Calc. Creatinine Clearance 250 mL/min (70-130); Calcium 9.2 mg/dL (7.8-10.44); Carbon Dioxide 24 mmol/L (22-29); Chloride 104 mmol/L (98-107); Estimated GFR-MDRD Greater than 90; Globulin 2.7 g/dL (2.4-3.5); Glucose 249 mg/dL (70-105); Potassium 4.5 mmol/L (3.5-5.1); Protein, Total 6.9 g/dL (6.0-8.3); Sodium 137 mmol/L (136-145)
[2018-08-18 05:20] LABS: Band 2 % (5-11); Hypochromia MODERATE=16-30 cells (100X) (0-5/hpf); Lymphocytes 9 % (21-51); MDiff Complete? YES; Macrocytosis SLIGHT = 6-15 cells (100X) (0-5/hpf); Monocytes 2 % (0-10); Neutrophil 87 % (42-75); Nucleated RBC 1 % (0); Platelet Morphology Comment Appears Adequate; Polychromasia SLIGHT = 2-3 cells (100X) (0-2/hpf); Reflex for Review?? YES
[2018-08-18] MEDS: HumaLOG 300 UNITS/3 ML VIAL SC PRN ×4 (05:53→21:25)
[2018-08-18] MEDS ORDERED: ALPRAZolam 0.25 MG TAB PO SCH (06:45)
[2018-08-18] MEDS ORDERED: RITUXIMAB IVPB SCH (08:15)
[2018-08-18] MEDS ORDERED: SODIUM CHLORIDE 0.9% IVPB SCH (08:15)
[2018-08-18] MEDS ORDERED: diphenhydrAMINE 25 MG CAP PO SCH (08:15)
[2018-08-18] MEDS ORDERED: Acetaminophen 500 MG TAB PO SCH (08:15)
[2018-08-18] MEDS: Folic Acid 1 MG TAB PO SCH (09:06)
[2018-08-18] MEDS: predniSONE 20 MG TAB PO SCH ×3 (09:06→21:26)
[2018-08-18] MEDS: predniSONE 50 MG TAB PO SCH ×3 (09:06→21:26)
--- NOTE | 2018-08-18 14:10 | PDOC.PN ---
- Subjective Encounter Start Date: 08/18/18 Encounter Start Time: 11:00 Feels ok. Had a panic attach this morning. Had xanax and it helped. - Objective Resuscitation Status - Order Detail: 08/17/18 02:36 Resuscitation Status Routine Resuscitation Status: FULL: Full Resuscitation Vital Signs & Weight: Vital Signs (12 hours) Temp Pulse Pulse Resp BP BP BP 08/18/18 12:20 98.1 F 104 H 18 134/81 08/18/18 09:30 98.3 F 109 H 18 127/69 08/18/18 08:50 98.3 F 109 H 18 127/69 08/18/18 08:00 08/18/18 06:00 98.2 F 95 20 110/57 L 08/18/18 05:38 98.5 F 111 H 20 123/66 08/18/18 04:00 98.5 F 102 H 18 110/68 Pulse Ox 08/18/18 12:20 98 08/18/18 09:30 98 08/18/18 08:50 08/18/18 08:00 98 08/18/18 06:00 08/18/18 05:38 08/18/18 04:00 98 Weight Admit Weight 310 lb Weight 310 lb I&O: 08/17/18 08/18/18 08/19/18 06:59 06:59 06:59 Intake Total 1330 350 Balance 1330 350 Result Diagrams: 08/18/18 04:13 08/18/18 04:13 Additional Labs: Accuchecks 08/18/18 08/17/18 08/17/18 11:44 23:49 20:19 POC Glucose 331 H 295 H 362 H 08/17/18 15:50 POC Glucose 286 H Phys Exam - Physical Examination Constitutional: NAD Respiratory: no wheezing, no rales, no rhonchi, clear to auscultation bilateral Cardiovascular: RRR, no significant murmur, no rub Gastrointestinal: soft, non-tender, no distention, positive bowel sounds Musculoskeletal: no edema Neurological: non-focal Psychiatric: normal affect, A&O x 3 Dx/Plan (1) Autoimmune hemolytic anemia Code(s): D59.1 - OTHER AUTOIMMUNE HEMOLYTIC ANEMIAS Status: Acute Comment: Warm (2) Leucocytosis Code(s): D72.829 - ELEVATED WHITE BLOOD CELL COUNT, UNSPECIFIED Status: Acute Qualifiers: (3) Hyperglycemia Code(s): R73.9 - HYPERGLYCEMIA, UNSPECIFIED Status: Acute Comment: Pre Diabetes. Education about diet and execrcise program (4) Morbid obesity with BMI of 45.0-49.9, adult Code(s): E66.01 - MORBID (SEVERE) OBESITY DUE TO EXCESS CALORIES; Z68.42 - BODY MASS INDEX (BMI) 45.0-49.9, ADULT Status: Chronic (5) Panic attack Code(s): F41.0 - PANIC DISORDER [EPISODIC PAROXYSMAL ANXIETY] Status: Acute - Plan * Transfused one unit of PRBC's this morning. * Dr. Lisa starting Rituxan. * Continue SSI. May be able to wean when steroids are weaned. * Xanax prn. May be related to high dose steroids.
[2018-08-18] MEDS: diphenhydrAMINE 50 MG/ML VIAL IVP SCH ×2 (16:30→16:31)
[2018-08-18] MEDS ORDERED: diphenhydrAMINE 50 MG/ML VIAL IVP PRN (16:36)
[2018-08-18] MEDS ORDERED: Dexamethasone 20 MG in Sodium Chloride 0.9% 50 ML IVPB SCH (16:45)
[2018-08-18] MEDS ORDERED: Famotidine/PF 20 mg/2ml Vial SLOW IVP SCH (16:45)
[2018-08-19] MEDS: HumaLOG 300 UNITS/3 ML VIAL SC PRN ×4 (05:57→20:57)
[2018-08-19 06:39] LABS: Hemoglobin 5.9 g/dL (12.0-16.0); Mean Corpuscular HGB CONC 34.7 g/dL (32.0-36.0); Mean Corpuscular Hemoglobin 30.3 pg (27.0-31.0); Mean Corpuscular Volume 87.1 fL (78.0-98.0); Mean Platelet Volume 6.9 fL (7.4-10.4); Platelet Count 351 thou/uL (130-400); RBC Distribution Width 15.1 % (11.5-14.5); Red Blood Cell (RBC) Count 1.94 mill/uL (4.20-5.40); White Blood Cell (WBC) Count 23.5 thou/uL (4.8-10.8)
[2018-08-19 08:00] LABS: Band 22 % (5-11); Lymphocytes 3 % (21-51); MDiff Complete? YES; Metamyelocyte 3 % (0-0); Monocytes 2 % (0-10); Myelocyte 3 % (0-0); Neutrophil 67 % (42-75); Nucleated RBC 1 % (0); Platelet Morphology Comment Appears Adequate; Polychromasia MODERATE = 3-4 cells (100X) (0-2/hpf); Toxic Granulation SLIGHT
[2018-08-19] MEDS: predniSONE 20 MG TAB PO SCH ×3 (08:12→20:53)
[2018-08-19] MEDS: predniSONE 50 MG TAB PO SCH ×3 (08:12→20:53)
[2018-08-19] MEDS: Folic Acid 1 MG TAB PO SCH (08:14)
--- NOTE | 2018-08-19 14:54 | PDOC.PN ---
- Subjective Encounter Start Date: 08/19/18 Encounter Start Time: 09:00 Feels well. No complaints. - Objective Resuscitation Status - Order Detail: 08/17/18 02:36 Resuscitation Status Routine Resuscitation Status: FULL: Full Resuscitation Vital Signs & Weight: Vital Signs (12 hours) Temp Pulse Resp BP Pulse Ox 08/19/18 11:27 98.1 F 08/19/18 07:56 98.3 F 91 18 126/66 97 08/19/18 07:50 98.4 F 85 18 172/81 H 95 08/19/18 04:00 98.7 F 98 16 108/52 L 99 Weight Admit Weight 310 lb Weight 310 lb I&O: 08/18/18 08/19/18 08/20/18 06:59 06:59 06:59 Intake Total 1330 2505 Balance 1330 2505 Result Diagrams: 08/19/18 06:04 08/18/18 04:13 Additional Labs: Accuchecks 08/19/18 08/19/18 08/18/18 11:04 05:24 20:16 POC Glucose 358 H 328 H 358 H 08/18/18 16:19 POC Glucose 333 H Phys Exam - Physical Examination Constitutional: NAD Respiratory: no wheezing, no rales, no rhonchi, clear to auscultation bilateral Cardiovascular: RRR, no significant murmur Gastrointestinal: soft, non-tender, no distention, positive bowel sounds Musculoskeletal: no edema Dx/Plan (1) Autoimmune hemolytic anemia Code(s): D59.1 - OTHER AUTOIMMUNE HEMOLYTIC ANEMIAS Status: Acute Comment: Warm (2) Leucocytosis Code(s): D72.829 - ELEVATED WHITE BLOOD CELL COUNT, UNSPECIFIED Status: Acute Qualifiers: (3) Hyperglycemia Code(s): R73.9 - HYPERGLYCEMIA, UNSPECIFIED Status: Acute Comment: Pre Diabetes. Education about diet and execrcise program (4) Morbid obesity with BMI of 45.0-49.9, adult Code(s): E66.01 - MORBID (SEVERE) OBESITY DUE TO EXCESS CALORIES; Z68.42 - BODY MASS INDEX (BMI) 45.0-49.9, ADULT Status: Chronic (5) Panic attack Code(s): F41.0 - PANIC DISORDER [EPISODIC PAROXYSMAL ANXIETY] Status: Acute - Plan * Tolerated Rituxan. * Continuing the steroids. * Continue FSBG's and SSI. * Ambulate. * No transfusion per Onc.
[2018-08-19] MEDS: Zolpidem Tartrate 5 MG TAB PO PRN (20:56)
[2018-08-19] MEDS: ALPRAZolam 0.25 MG TAB PO PRN (23:49)
[2018-08-20 05:15] LABS: Hemoglobin 5.7 g/dL (12.0-16.0)
[2018-08-20 06:04] LABS: Band 20 % (5-11); Lymphocytes 5 % (21-51); MDiff Complete? YES; Mean Corpuscular HGB CONC 34.6 g/dL (32.0-36.0); Mean Corpuscular Hemoglobin 30.7 pg (27.0-31.0); Mean Corpuscular Volume 88.7 fL (78.0-98.0); Mean Platelet Volume 7.1 fL (7.4-10.4); Metamyelocyte 4 % (0-0); Monocytes 5 % (0-10); Myelocyte 1 % (0-0); Neutrophil 65 % (42-75); Nucleated RBC 1 % (0); Platelet Count 328 thou/uL (130-400); RBC Distribution Width 15.6 % (11.5-14.5); Red Blood Cell (RBC) Count 1.85 mill/uL (4.20-5.40); White Blood Cell (WBC) Count 22.5 thou/uL (4.8-10.8)
[2018-08-20] MEDS: Folic Acid 1 MG TAB PO SCH (08:23)
[2018-08-20] MEDS: predniSONE 20 MG TAB PO SCH ×3 (08:23→21:28)
[2018-08-20] MEDS: predniSONE 50 MG TAB PO SCH ×3 (08:23→21:28)
[2018-08-20] MEDS: HumaLOG 300 UNITS/3 ML VIAL SC PRN ×3 (11:10→21:26)
--- NOTE | 2018-08-20 12:16 | PDOC.PN ---
- Subjective Encounter Start Date: 08/20/18 Encounter Start Time: 08:00 Doing well. No complaints. Still has some mild anxiety. Meds are adequate. - Objective Resuscitation Status - Order Detail: 08/17/18 02:36 Resuscitation Status Routine Resuscitation Status: FULL: Full Resuscitation Vital Signs & Weight: Vital Signs (12 hours) Temp Pulse Resp BP BP Pulse Ox 08/20/18 08:00 98.1 F 100 18 133/79 100 08/20/18 03:05 98.2 F 96 16 132/65 100 Weight Admit Weight 310 lb Weight 310 lb I&O: 08/19/18 08/20/18 08/21/18 06:59 06:59 06:59 Intake Total 2505 Balance 2505 Result Diagrams: 08/20/18 04:12 08/18/18 04:13 Additional Labs: Accuchecks 08/20/18 08/19/18 08/19/18 10:52 20:57 18:22 POC Glucose 430 H 339 H 379 H 08/19/18 16:44 POC Glucose 399 H Phys Exam - Physical Examination Constitutional: NAD Respiratory: no wheezing, no rales, no rhonchi, clear to auscultation bilateral Cardiovascular: RRR, no significant murmur, no rub Gastrointestinal: soft, non-tender, no distention, positive bowel sounds Musculoskeletal: no edema Dx/Plan (1) Autoimmune hemolytic anemia Code(s): D59.1 - OTHER AUTOIMMUNE HEMOLYTIC ANEMIAS Status: Acute Comment: Warm (2) Leucocytosis Code(s): D72.829 - ELEVATED WHITE BLOOD CELL COUNT, UNSPECIFIED Status: Acute Qualifiers: (3) Hyperglycemia Code(s): R73.9 - HYPERGLYCEMIA, UNSPECIFIED Status: Acute Comment: Pre Diabetes. Education about diet and execrcise program (4) Morbid obesity with BMI of 45.0-49.9, adult Code(s): E66.01 - MORBID (SEVERE) OBESITY DUE TO EXCESS CALORIES; Z68.42 - BODY MASS INDEX (BMI) 45.0-49.9, ADULT Status: Chronic (5) Panic attack Code(s): F41.0 - PANIC DISORDER [EPISODIC PAROXYSMAL ANXIETY] Status: Acute - Plan * Continue to monitor hgb with Rituxan given and daily steroids. * Increase to Aggressive SSI testing engineer persistent hyperglycemia. * Ambulate as greg.
[2018-08-20] MEDS: ALPRAZolam 0.25 MG TAB PO PRN (21:27)
[2018-08-20] MEDS: Zolpidem Tartrate 5 MG TAB PO PRN (21:27)
[2018-08-21 06:22] LABS: Hemoglobin 5.1 g/dL (12.0-16.0); Mean Corpuscular HGB CONC 33.8 g/dL (32.0-36.0); Mean Corpuscular Hemoglobin 29.4 pg (27.0-31.0); Mean Corpuscular Volume 87.1 fL (78.0-98.0); Platelet Count 281 thou/uL (130-400); RBC Distribution Width 17.3 % (11.5-14.5); Red Blood Cell (RBC) Count 1.73 mill/uL (4.20-5.40); White Blood Cell (WBC) Count 22.9 thou/uL (4.8-10.8)
[2018-08-21 06:29] LABS: ALT (SGPT) 48 U/L (8-55); AST (SGOT) 12 U/L (5-34); Albumin 4.1 g/dL (3.5-5.0); Alkaline Phosphatase 113 U/L (40-150); Anion Gap 16 mmol/L (10-20); BUN (Urea Nitrogen) 25 mg/dL (7.0-18.7); Bilirubin, Total 3.3 mg/dL (0.2-1.2); Calc. Creatinine Clearance 226 mL/min (70-130); Calcium 9.1 mg/dL (7.8-10.44); Carbon Dioxide 24 mmol/L (22-29); Chloride 100 mmol/L (98-107); Estimated GFR-MDRD 82; Globulin 2.7 g/dL (2.4-3.5); Glucose 361 mg/dL (70-105); Potassium 4.5 mmol/L (3.5-5.1); Protein, Total 6.8 g/dL (6.0-8.3); Sodium 135 mmol/L (136-145)
[2018-08-21 06:42] LABS: Anisocytosis SLIGHT = 6-15 cells (100X) (0-5/hpf); Band 14 % (5-11); Lymphocytes 9 % (21-51); MDiff Complete? YES; Metamyelocyte 2 % (0-0); Monocytes 1 % (0-10); Myelocyte 1 % (0-0); Neutrophil 73 % (42-75); Polychromasia MODERATE = 3-4 cells (100X) (0-2/hpf)
[2018-08-21] MEDS: predniSONE 50 MG TAB PO SCH ×3 (09:23→20:55)
[2018-08-21] MEDS: predniSONE 20 MG TAB PO SCH ×3 (09:24→20:55)
[2018-08-21] MEDS: Folic Acid 1 MG TAB PO SCH (09:24)
[2018-08-21] MEDS: HumaLOG 300 UNITS/3 ML VIAL SC PRN ×4 (09:24→20:56)
--- NOTE | 2018-08-21 18:23 | PDOC.PN ---
- Subjective Encounter Start Date: 08/21/18 Encounter Start Time: 08:30 Doing well. Still has some HERNÁNDEZ. - Objective Resuscitation Status - Order Detail: 08/17/18 02:36 Resuscitation Status Routine Resuscitation Status: FULL: Full Resuscitation Vital Signs & Weight: Vital Signs (12 hours) Temp Pulse Resp BP Pulse Ox 08/21/18 08:30 95 08/21/18 08:00 98.4 F 105 H 18 131/73 95 Weight Admit Weight 310 lb Weight 310 lb Result Diagrams: 08/21/18 06:01 08/21/18 06:01 Additional Labs: Accuchecks 08/21/18 08/21/18 08/21/18 17:26 11:13 09:23 POC Glucose 401 H 434 H 317 H 08/20/18 20:54 POC Glucose 414 H Phys Exam - Physical Examination Constitutional: NAD Slightly pale. 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 Education about diet and execrcise program (4) Morbid obesity with BMI of 45.0-49.9, adult Code(s): E66.01 - MORBID (SEVERE) OBESITY DUE TO EXCESS CALORIES; Z68.42 - BODY MASS INDEX (BMI) 45.0-49.9, ADULT Status: Chronic (5) Panic attack Code(s): F41.0 - PANIC DISORDER [EPISODIC PAROXYSMAL ANXIETY] Status: Acute - Plan * Will add some long acting insulin. * Continue SSI. * Diabetic diet restrictions * Onc following. * Avoiding additional transfusions as possible. * Continue to monitor daily hgb after Rituxan and still on steroids.
[2018-08-21] MEDS: Zolpidem Tartrate 5 MG TAB PO PRN (20:58)
[2018-08-21] MEDS: ALPRAZolam 0.25 MG TAB PO PRN (20:58)
[2018-08-21] MEDS ORDERED: Insulin Glargine 20 UNITS in Pre-Filled Syringe 1 EACH SC SCH (21:00)
[2018-08-22 06:12] LABS: ALT (SGPT) 40 U/L (8-55); AST (SGOT) 11 U/L (5-34); Albumin 4.1 g/dL (3.5-5.0); Alkaline Phosphatase 109 U/L (40-150); Anion Gap 15 mmol/L (10-20); BUN (Urea Nitrogen) 25 mg/dL (7.0-18.7); Bilirubin, Total 2.7 mg/dL (0.2-1.2); Calc. Creatinine Clearance 232 mL/min (70-130); Calcium 9.2 mg/dL (7.8-10.44); Carbon Dioxide 24 mmol/L (22-29); Chloride 99 mmol/L (98-107); Estimated GFR-MDRD 85; Globulin 2.6 g/dL (2.4-3.5); Glucose 344 mg/dL (70-105); Potassium 4.3 mmol/L (3.5-5.1); Protein, Total 6.7 g/dL (6.0-8.3); Sodium 134 mmol/L (136-145)
[2018-08-22 06:23] LABS: Hemoglobin 5.1 g/dL (12.0-16.0)
[2018-08-22] MEDS: HumaLOG 300 UNITS/3 ML VIAL SC PRN ×4 (06:32→18:08)
[2018-08-22 08:20] LABS: Anisocytosis MODERATE=16-30 cells (100X) (0-5/hpf); Band 11 % (5-11); Lymphocytes 13 % (21-51); MDiff Complete? YES; Mean Corpuscular HGB CONC 34.2 g/dL (32.0-36.0); Mean Corpuscular Hemoglobin 31.1 pg (27.0-31.0); Mean Platelet Volume 7.2 fL (7.4-10.4); Metamyelocyte 1 % (0-0); Monocytes 2 % (0-10); Neutrophil 73 % (42-75); Nucleated RBC 4 % (0); Platelet Count 270 thou/uL (130-400); Polychromasia MODERATE = 3-4 cells (100X) (0-2/hpf); RBC Distribution Width 19.6 % (11.5-14.5); Red Blood Cell (RBC) Count 1.63 mill/uL (4.20-5.40); White Blood Cell (WBC) Count 20.2 thou/uL (4.8-10.8)
[2018-08-22] MEDS ORDERED: Insulin Glargine 30 UNITS in Pre-Filled Syringe 1 EACH SC SCH (08:45)
[2018-08-22] MEDS: Folic Acid 1 MG TAB PO SCH (08:53)
[2018-08-22] MEDS: predniSONE 50 MG TAB PO SCH ×3 (08:53→20:11)
[2018-08-22] MEDS: predniSONE 20 MG TAB PO SCH ×3 (08:53→20:11)
--- NOTE | 2018-08-22 13:43 | PDOC.PN ---
- Subjective Encounter Start Date: 08/22/18 Encounter Start Time: 13:41 Doing well overall. Ambulating. No new concerns. - Objective Resuscitation Status - Order Detail: 08/17/18 02:36 Resuscitation Status Routine Resuscitation Status: FULL: Full Resuscitation Vital Signs & Weight: Vital Signs (12 hours) Temp Pulse Resp BP Pulse Ox 08/22/18 08:00 98.0 F 111 H 18 139/84 98 Weight Admit Weight 310 lb Weight 310 lb I&O: 08/21/18 08/22/18 08/23/18 06:59 06:59 06:59 Intake Total 1280 Balance 1280 Result Diagrams: 08/22/18 04:51 08/22/18 04:51 Additional Labs: Accuchecks 08/22/18 08/22/18 08/21/18 11:29 06:23 20:34 POC Glucose 360 H 361 H 391 H 08/21/18 17:26 POC Glucose 401 H Phys Exam - Physical Examination Constitutional: NAD Morbidly obese Respiratory: no wheezing, no rales, no rhonchi, clear to auscultation bilateral Cardiovascular: RRR, no significant murmur, no rub Gastrointestinal: soft, non-tender, no distention, positive bowel sounds Dx/Plan (1) Autoimmune hemolytic anemia Code(s): D59.1 - OTHER AUTOIMMUNE HEMOLYTIC ANEMIAS Status: Acute Comment: Warm (2) Leucocytosis Code(s): D72.829 - ELEVATED WHITE BLOOD CELL COUNT, UNSPECIFIED Status: Acute Qualifiers: (3) Hyperglycemia Code(s): R73.9 - HYPERGLYCEMIA, UNSPECIFIED Status: Acute Comment: Pre Diabetes. Education about diet and execrcise program (4) Morbid obesity with BMI of 45.0-49.9, adult Code(s): E66.01 - MORBID (SEVERE) OBESITY DUE TO EXCESS CALORIES; Z68.42 - BODY MASS INDEX (BMI) 45.0-49.9, ADULT Status: Chronic (5) Panic attack Code(s): F41.0 - PANIC DISORDER [EPISODIC PAROXYSMAL ANXIETY] Status: Resolved - Plan * Laying in the long acting insulin. Continue SSI. * Daily steroids. S/P Rituxan. Daily labs. Avoiding transfusions per onc.
[2018-08-22] MEDS ORDERED: metFORMIN 500 MG TAB PO SCH (19:15)
[2018-08-22] MEDS ORDERED: HumaLOG 300 UNITS/3 ML VIAL SC SCH (19:15)
[2018-08-22] MEDS: Insulin Glargine 30 UNITS in Pre-Filled Syringe 1 EACH SC SCH (20:16)
[2018-08-22] MEDS: ALPRAZolam 0.25 MG TAB PO PRN (20:17)
[2018-08-22] MEDS: Zolpidem Tartrate 5 MG TAB PO PRN (20:17)
[2018-08-23 04:31] LABS: Reticulocyte Count 18.1 % (0.5-1.5)
[2018-08-23 04:32] LABS: Mean Corpuscular HGB CONC 33.9 g/dL (32.0-36.0); Mean Corpuscular Hemoglobin 31.6 pg (27.0-31.0); Mean Corpuscular Volume 93.3 fL (78.0-98.0); Mean Platelet Volume 6.9 fL (7.4-10.4); Platelet Count 228 thou/uL (130-400); RBC Distribution Width 21.3 % (11.5-14.5); Red Blood Cell (RBC) Count 1.59 mill/uL (4.20-5.40)
[2018-08-23 04:47] LABS: ALT (SGPT) 34 U/L (8-55); AST (SGOT) 12 U/L (5-34); Albumin 3.9 g/dL (3.5-5.0); Alkaline Phosphatase 99 U/L (40-150); Anion Gap 14 mmol/L (10-20); BUN (Urea Nitrogen) 25 mg/dL (7.0-18.7); Bilirubin, Total 2.4 mg/dL (0.2-1.2); Calc. Creatinine Clearance 232 mL/min (70-130); Calcium 9.1 mg/dL (7.8-10.44); Carbon Dioxide 25 mmol/L (22-29); Chloride 99 mmol/L (98-107); Estimated GFR-MDRD 85; Globulin 2.4 g/dL (2.4-3.5); Glucose 369 mg/dL (70-105); Potassium 4.4 mmol/L (3.5-5.1); Protein, Total 6.3 g/dL (6.0-8.3); Sodium 134 mmol/L (136-145)
[2018-08-23 04:57] LABS: Band 17 % (5-11); Basophilic Stippling SLIGHT = 1-2 cells (100X) (None Seen); Lymphocytes 2 % (21-51); MDiff Complete? YES; Metamyelocyte 1 % (0-0); Monocytes 3 % (0-10); Myelocyte 3 % (0-0); Neutrophil 74 % (42-75); Nucleated RBC 1 % (0); Platelet Morphology Comment Appears Adequate; Polychromasia MODERATE = 3-4 cells (100X) (0-2/hpf)
[2018-08-23] MEDS: HumaLOG 300 UNITS/3 ML VIAL SC PRN ×4 (05:41→20:46)
[2018-08-23] MEDS: metFORMIN 500 MG TAB PO SCH ×2 (09:08→17:44)
[2018-08-23] MEDS: Insulin Glargine 30 UNITS in Pre-Filled Syringe SC SCH (09:08)
[2018-08-23] MEDS: predniSONE 50 MG TAB PO SCH ×2 (09:08→20:48)
[2018-08-23] MEDS: Folic Acid 1 MG TAB PO SCH (09:08)
[2018-08-23] MEDS: predniSONE 20 MG TAB PO SCH ×2 (09:08→20:49)
[2018-08-23 10:51] LABS: HIV (1/2) Antibody/Antigen Non-Reactive (NonReactive); HIV 1/2 INDEX 0.06 S/CO (<1.00)
[2018-08-23] MEDS ORDERED: ADMIXTURE FEE IVPB SCH (11:00)
[2018-08-23] MEDS ORDERED: PRIVIGEN IVPB SCH (11:00)
[2018-08-23] MEDS: ADMIXTURE FEE IVPB SCH (14:01)
[2018-08-23] MEDS: OCTAGAM IVPB SCH (14:01)
--- NOTE | 2018-08-23 14:09 | PDOC.PN ---
- Subjective Encounter Start Date: 08/23/18 Encounter Start Time: 10:40 Still doing well. No new complaints. - Objective Resuscitation Status - Order Detail: 08/17/18 02:36 Resuscitation Status Routine Resuscitation Status: FULL: Full Resuscitation Vital Signs & Weight: Vital Signs (12 hours) Temp Pulse Resp BP BP Pulse Ox 08/23/18 11:33 98.4 F 97 16 129/69 97 08/23/18 08:00 98.5 F 98 14 127/73 100 Weight Admit Weight 310 lb Weight 310 lb I&O: 08/22/18 08/23/18 08/24/18 06:59 06:59 06:59 Intake Total 1280 1540 Balance 1280 1540 Result Diagrams: 08/23/18 04:14 08/23/18 04:14 Additional Labs: Accuchecks 08/23/18 08/22/18 08/22/18 11:31 20:12 18:59 POC Glucose 299 H 381 H 395 H 08/22/18 08/22/18 17:59 16:36 POC Glucose 439 H 413 H Phys Exam - Physical Examination Constitutional: NAD Respiratory: no wheezing, no rales, no rhonchi Cardiovascular: RRR, no significant murmur Gastrointestinal: soft, non-tender, no distention, positive bowel sounds Musculoskeletal: no edema Neurological: non-focal Psychiatric: normal affect, A&O x 3 Dx/Plan (1) Autoimmune hemolytic anemia Code(s): D59.1 - OTHER AUTOIMMUNE HEMOLYTIC ANEMIAS Status: Acute Comment: Warm (2) Leucocytosis Code(s): D72.829 - ELEVATED WHITE BLOOD CELL COUNT, UNSPECIFIED Status: Acute Qualifiers: (3) Hyperglycemia Code(s): R73.9 - HYPERGLYCEMIA, UNSPECIFIED Status: Acute Comment: Pre Diabetes. Education about diet and execrcise program (4) Morbid obesity with BMI of 45.0-49.9, adult Code(s): E66.01 - MORBID (SEVERE) OBESITY DUE TO EXCESS CALORIES; Z68.42 - BODY MASS INDEX (BMI) 45.0-49.9, ADULT Status: Chronic (5) Panic attack Code(s): F41.0 - PANIC DISORDER [EPISODIC PAROXYSMAL ANXIETY] Status: Resolved - Plan * Doing well. Hgb still low. * Dropping steroids and adding IVIg. * BMBx today. * Will not be more aggressive in managing the glucose as I suspect it will start to improve with lower Prednisone. * Continue Metformin.
[2018-08-23] MEDS: Insulin Glargine 30 UNITS in Pre-Filled Syringe 1 EACH SC SCH (20:46)
[2018-08-23] MEDS: Zolpidem Tartrate 5 MG TAB PO PRN (20:54)
[2018-08-23] MEDS: ALPRAZolam 0.25 MG TAB PO PRN (20:55)
[2018-08-24 05:26] LABS: Hemoglobin 5.3 g/dL (12.0-16.0)
[2018-08-24 06:04] LABS: Anisocytosis MODERATE=16-30 cells (100X) (0-5/hpf); Band 11 % (5-11); Eosinophils 3 % (0-10); Lymphocytes 6 % (21-51); MDiff Complete? YES; Mean Corpuscular HGB CONC 32.7 g/dL (32.0-36.0); Mean Corpuscular Hemoglobin 32.2 pg (27.0-31.0); Mean Corpuscular Volume 98.4 fL (78.0-98.0); Mean Platelet Volume 7.2 fL (7.4-10.4); Monocytes 3 % (0-10); Neutrophil 77 % (42-75); Nucleated RBC 9 % (0); Platelet Count 215 thou/uL (130-400); Polychromasia SLIGHT = 2-3 cells (100X) (0-2/hpf); RBC Distribution Width 24.3 % (11.5-14.5); Red Blood Cell (RBC) Count 1.66 mill/uL (4.20-5.40); White Blood Cell (WBC) Count 14.1 thou/uL (4.8-10.8)
[2018-08-24] MEDS: HumaLOG 300 UNITS/3 ML VIAL SC PRN ×3 (06:39→17:49)
[2018-08-24 08:00] LABS: ALT (SGPT) 29 U/L (8-55); AST (SGOT) 10 U/L (5-34); Albumin 3.6 g/dL (3.5-5.0); Alkaline Phosphatase 99 U/L (40-150); Anion Gap 12 mmol/L (10-20); BUN (Urea Nitrogen) 19 mg/dL (7.0-18.7); Bilirubin, Total 0.8 mg/dL (0.2-1.2); Calc. Creatinine Clearance 244 mL/min (70-130); Calcium 8.8 mg/dL (7.8-10.44); Carbon Dioxide 24 mmol/L (22-29); Chloride 101 mmol/L (98-107); Estimated GFR-MDRD 90; Globulin 3.7 g/dL (2.4-3.5); Glucose 321 mg/dL (70-105); Potassium 4.4 mmol/L (3.5-5.1); Protein, Total 7.3 g/dL (6.0-8.3); Sodium 133 mmol/L (136-145)
[2018-08-24] MEDS: predniSONE 20 MG TAB PO SCH ×2 (08:37→21:02)
[2018-08-24] MEDS: metFORMIN 500 MG TAB PO SCH ×2 (08:38→17:49)
[2018-08-24] MEDS: predniSONE 50 MG TAB PO SCH ×2 (08:38→21:02)
[2018-08-24] MEDS: Folic Acid 1 MG TAB PO SCH (08:38)
[2018-08-24] MEDS: Insulin Glargine 30 UNITS in Pre-Filled Syringe SC SCH (10:04)
[2018-08-24] MEDS: OCTAGAM IVPB SCH (12:00)
[2018-08-24] MEDS: ADMIXTURE FEE IVPB SCH (12:00)
[2018-08-24] MEDS ORDERED: ALPRAZolam 0.5 MG TAB PO SCH (21:00)
[2018-08-24] MEDS: Zolpidem Tartrate 5 MG TAB PO PRN (21:03)
[2018-08-24] MEDS: Insulin Glargine 30 UNITS in Pre-Filled Syringe 1 EACH SC SCH (21:05)
--- NOTE | 2018-08-24 22:09 | PDOC.PN ---
- Subjective Encounter Start Date: 08/24/18 Encounter Start Time: 15:00 Feeling better today. Less tachycardia with activity. Still has some polyuria. No other complaints. - Objective Resuscitation Status - Order Detail: 08/17/18 02:36 Resuscitation Status Routine Resuscitation Status: FULL: Full Resuscitation Vital Signs & Weight: Vital Signs (12 hours) Temp Pulse Resp BP Pulse Ox 08/24/18 20:00 98.7 F 94 20 128/77 100 Weight Admit Weight 310 lb Weight 310 lb I&O: 08/23/18 08/24/18 08/25/18 06:59 06:59 06:59 Intake Total 1540 1700 1700 Balance 1540 1700 1700 Result Diagrams: 08/24/18 04:42 08/24/18 07:20 Additional Labs: Accuchecks 08/24/18 08/24/18 08/24/18 20:32 16:11 11:37 POC Glucose 226 H 331 H 337 H 08/24/18 05:48 POC Glucose 368 H Phys Exam - Physical Examination Constitutional: NAD morbidly obese. 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 Education about diet and execrcise program (4) Morbid obesity with BMI of 45.0-49.9, adult Code(s): E66.01 - MORBID (SEVERE) OBESITY DUE TO EXCESS CALORIES; Z68.42 - BODY MASS INDEX (BMI) 45.0-49.9, ADULT Status: Chronic (5) Panic attack Code(s): F41.0 - PANIC DISORDER [EPISODIC PAROXYSMAL ANXIETY] Status: Resolved - Plan * Autoimmune hemolytic anemia treated with Prednisone, Rituxan and now IVIG. Plan is for more Rituxan on . * Has declined bone marrow biopsy and splenectomy. * Starting to show signs of modest improvement. * Glucose readings still very high, but starting to trend down with the lower steroid dose. * Increasing dose of metformin. * Will need to watch the glucose as the steroids are tapered. * Remaining in the hospital until the hemoglobin is stable in an acceptable range.
[2018-08-25 04:47] LABS: INR-International Normal Ratio 1.1; Prothrombin Time 14.1 SEC (12.0-14.7)
[2018-08-25 04:48] LABS: Hemoglobin 5.9 g/dL (12.0-16.0); Mean Corpuscular HGB CONC 31.9 g/dL (32.0-36.0); Mean Corpuscular Hemoglobin 32.5 pg (27.0-31.0); Platelet Count 198 thou/uL (130-400); RBC Distribution Width 24.5 % (11.5-14.5); Red Blood Cell (RBC) Count 1.82 mill/uL (4.20-5.40)
[2018-08-25 04:49] LABS: PTT 22.4 SEC (22.9-36.1)
[2018-08-25 05:07] LABS: ALT (SGPT) 27 U/L (8-55); AST (SGOT) 16 U/L (5-34); Albumin 3.4 g/dL (3.5-5.0); Alkaline Phosphatase 89 U/L (40-150); Anion Gap 13 mmol/L (10-20); BUN (Urea Nitrogen) 22 mg/dL (7.0-18.7); Bilirubin, Total 0.8 mg/dL (0.2-1.2); Calc. Creatinine Clearance 234 mL/min (70-130); Calcium 8.6 mg/dL (7.8-10.44); Carbon Dioxide 24 mmol/L (22-29); Chloride 100 mmol/L (98-107); Estimated GFR-MDRD 86; Globulin 4.6 g/dL (2.4-3.5); Glucose 281 mg/dL (70-105); Potassium 4.7 mmol/L (3.5-5.1); Sodium 132 mmol/L (136-145)
[2018-08-25 05:19] LABS: Anisocytosis MODERATE=16-30 cells (100X) (0-5/hpf); Band 14 % (5-11); Basophilic Stippling SLIGHT = 1-2 cells (100X) (None Seen); Lymphocytes 10 % (21-51); MDiff Complete? YES; Macrocytosis SLIGHT = 6-15 cells (100X) (0-5/hpf); Metamyelocyte 4 % (0-0); Monocytes 4 % (0-10); Myelocyte 2 % (0-0); Neutrophil 65 % (42-75); Nucleated RBC 19 % (0); Polychromasia MARKED = >4 cells (100X) (0-2/hpf); Reactive Lymphocytes 1 % (0-10); White Blood Cell (WBC) Count 9.6 thou/uL (4.8-10.8)
[2018-08-25] MEDS: HumaLOG 300 UNITS/3 ML VIAL SC PRN ×4 (06:15→21:53)
[2018-08-25] MEDS: predniSONE 50 MG TAB PO SCH ×2 (09:50→17:24)
[2018-08-25] MEDS: Folic Acid 1 MG TAB PO SCH (09:51)
[2018-08-25] MEDS: metFORMIN 500 MG TAB PO SCH ×2 (09:51→17:24)
[2018-08-25] MEDS: Insulin Glargine 30 UNITS in Pre-Filled Syringe SC SCH (09:51)
--- NOTE | 2018-08-25 10:47 | PDOC.PN ---
- Subjective Encounter Start Date: 08/25/18 Encounter Start Time: 10:00 Subjective: no sob or abd pain -: no rash or bleeding -: feels better, is amb in room, eating well - Objective Resuscitation Status - Order Detail: 08/17/18 02:36 Resuscitation Status Routine Resuscitation Status: FULL: Full Resuscitation MAR Reviewed: Yes Vital Signs & Weight: Vital Signs (12 hours) Temp Pulse Resp BP Pulse Ox 08/25/18 08:00 97.9 F 92 18 123/78 100 Weight Admit Weight 310 lb Weight 310 lb I&O: 08/24/18 08/25/18 08/26/18 06:59 06:59 06:59 Intake Total 1700 1700 Balance 1700 1700 Result Diagrams: 08/25/18 04:09 08/25/18 04:09 Additional Labs: Accuchecks 08/25/18 08/24/18 08/24/18 05:03 20:32 16:11 POC Glucose 310 H 226 H 331 H 08/24/18 11:37 POC Glucose 337 H Phys Exam - Physical Examination HEENT: PERRLA, moist MMs Neck: no JVD, supple Respiratory: no wheezing, no rales Cardiovascular: RRR, no significant murmur Gastrointestinal: soft, non-tender, no distention, positive bowel sounds Musculoskeletal: no edema, pulses present Neurological: non-focal, moves all 4 limbs Psychiatric: normal affect, A&O x 3 Dx/Plan (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 Education about diet and execrcise program (3) Morbid obesity with BMI of 45.0-49.9, adult Code(s): E66.01 - MORBID (SEVERE) OBESITY DUE TO EXCESS CALORIES; Z68.42 - BODY MASS INDEX (BMI) 45.0-49.9, ADULT Status: Chronic (4) Panic attack Code(s): F41.0 - PANIC DISORDER [EPISODIC PAROXYSMAL ANXIETY] Status: Resolved - Plan is on prednisone, recieved IvIg -: for rituximab infusion tomorrow -: currently on lantus 30u bid, metformin 500mg bid -: HbA1c was 5, likely glu intolerance due to steroids -: d/w pt and mom at bedside * . Review of Systems - Medications/Allergies Allergies/Adverse Reactions: Allergies Allergy/AdvReac Type Severity Reaction Status Date / Time iodine Allergy Verified 08/16/18 22:48 Medications: Current Medications Acetaminophen (Tylenol) 650 mg PO Q4H PRN PRN Reason: Headache/Fever/Mild Pain (1-3) Acetaminophen (Tylenol) 650 mg AL Q4H PRN PRN Reason: Headache/Fever/Mild Pain (1-3) Alprazolam (Xanax) 0.5 mg PO [facility] Bisacodyl (Dulcolax) 10 mg PO DAILYPRN PRN PRN Reason: Constipation Last Admin: 08/17/18 09:32 Dose: 10 mg Calcium Carbonate (Tums) 1,000 mg PO Q4H PRN PRN Reason: Heartburn or Indigestion Dextrose/Water (Dextrose 50%) 25 gm SLOW IVP PRN PRN PRN Reason: Hypoglycemia Folic Acid (Folvite) 1 mg PO DAILY [facility] Last Admin: 08/25/18 09:51 Dose: 1 mg Glucagon (Glucagon) 1 mg IM PRN PRN PRN Reason: Hypoglycemia Dextrose/Water (D5w) 1,000 mls @ 0 mls/hr IV .Q0M PRN PRN Reason: Hypoglycemia Insulin Glargine 30 units/ (Miscellaneous Medication) 0.3 mls @ 0 mls/hr SC [facility] Last Admin: 08/25/18 09:51 Dose: 0.3 mls Insulin Glargine 30 units/ (Miscellaneous Medication) 0.3 mls @ 0 mls/hr SC [facility] Last Admin: 08/24/18 21:05 Dose: 0.3 mls Insulin Human Lispro (Humalog) 0 units SC .AGGRESSIVE SLIDING PRN PRN Reason: Aggressive Correctional Scale Last Admin: 08/25/18 06:15 Dose: 11 unit Insulin Human Lispro (Humalog) 0 units SC .BEDTIME SLIDING SC PRN PRN Reason: Bedtime Correctional Scale Last Admin: 08/23/18 20:46 Dose: 4 unit Metformin HCl (Glucophage) 500 mg PO BID[facility] Last Admin: 08/25/18 09:51 Dose: 500 mg Ondansetron HCl (Zofran Odt) 4 mg PO Q6H PRN PRN Reason: Nausea/Vomiting Ondansetron HCl (Zofran) 4 mg IVP Q6H PRN PRN Reason: Nausea/Vomiting Pantoprazole Sodium (Protonix) 40 mg PO DAILY [facility] Last Admin: 08/25/18 09:51 Dose: 40 mg Prednisone (Prednisone) 50 mg PO BID [facility] Last Admin: 08/25/18 09:50 Dose: 50 mg Senna/Docusate Sodium (Senokot S) 2 tab PO BID PRN PRN Reason: Constipation Sodium Chloride (Flush - Normal Saline) 10 ml IVF Q12HR [facility] Last Admin: 08/25/18 09:52 Dose: 10 ml Sodium Chloride (Flush - Normal Saline) 10 ml IVF PRN PRN PRN Reason: Saline Flush Zolpidem Tartrate (Ambien) 5 mg PO HSPRN PRN PRN Reason: Insomnia Last Admin: 08/24/18 21:03 Dose: 5 mg
[2018-08-25] MEDS: Insulin Glargine 30 UNITS in Pre-Filled Syringe 1 EACH SC SCH (21:54)
[2018-08-25] MEDS: ALPRAZolam 0.5 MG TAB PO SCH (21:55)
[2018-08-25] MEDS: Zolpidem Tartrate 5 MG TAB PO PRN (21:55)
[2018-08-26 05:17] LABS: ALT (SGPT) 25 U/L (8-55); AST (SGOT) 13 U/L (5-34); Albumin 3.3 g/dL (3.5-5.0); Alkaline Phosphatase 86 U/L (40-150); Anion Gap 12 mmol/L (10-20); BUN (Urea Nitrogen) 17 mg/dL (7.0-18.7); Bilirubin, Total 0.9 mg/dL (0.2-1.2); Calc. Creatinine Clearance 247 mL/min (70-130); Calcium 8.8 mg/dL (7.8-10.44); Carbon Dioxide 24 mmol/L (22-29); Chloride 101 mmol/L (98-107); Estimated GFR-MDRD Greater than 90; Globulin 4.3 g/dL (2.4-3.5); Glucose 233 mg/dL (70-105); Potassium 4.2 mmol/L (3.5-5.1); Protein, Total 7.6 g/dL (6.0-8.3); Sodium 133 mmol/L (136-145)
[2018-08-26 05:56] LABS: Anisocytosis MODERATE=16-30 cells (100X) (0-5/hpf); Band 12 % (5-11); Hemoglobin 6.5 g/dL (12.0-16.0); Lymphocytes 6 % (21-51); MDiff Complete? YES; Mean Corpuscular HGB CONC 31.6 g/dL (32.0-36.0); Mean Corpuscular Hemoglobin 32.9 pg (27.0-31.0); Mean Platelet Volume 7.3 fL (7.4-10.4); Monocytes 5 % (0-10); Neutrophil 77 % (42-75); Nucleated RBC 8 % (0); Platelet Count 172 thou/uL (130-400); Platelet Morphology Comment Appears Adequate; Polychromasia MODERATE = 3-4 cells (100X) (0-2/hpf); RBC Distribution Width 23.4 % (11.5-14.5); Red Blood Cell (RBC) Count 1.97 mill/uL (4.20-5.40); Stomatocytes MODERATE= 6-15 cells (100X) (0-1/hpf); White Blood Cell (WBC) Count 9.4 thou/uL (4.8-10.8)
[2018-08-26] MEDS: HumaLOG 300 UNITS/3 ML VIAL SC PRN ×3 (06:17→21:19)
[2018-08-26] MEDS: metFORMIN 500 MG TAB PO SCH ×2 (08:31→18:16)
[2018-08-26] MEDS: Folic Acid 1 MG TAB PO SCH (08:31)
[2018-08-26] MEDS: predniSONE 50 MG TAB PO SCH ×2 (08:32→17:12)
[2018-08-26] MEDS ORDERED: diphenhydrAMINE 50 MG/ML VIAL IVP SCH (09:30)
[2018-08-26] MEDS ORDERED: RITUXIMAB IVPB SCH (09:30)
[2018-08-26] MEDS ORDERED: Acetaminophen 500 MG TAB PO SCH (09:30)
[2018-08-26] MEDS ORDERED: SODIUM CHLORIDE 0.9% IVPB SCH (09:30)
[2018-08-26] MEDS: Insulin Glargine 30 UNITS in Pre-Filled Syringe SC SCH (10:02)
--- NOTE | 2018-08-26 11:34 | PDOC.PN ---
- Subjective Encounter Start Date: 08/26/18 Encounter Start Time: 09:00 Subjective: no bleeding or sob, feels better - Objective Resuscitation Status - Order Detail: 08/17/18 02:36 Resuscitation Status Routine Resuscitation Status: FULL: Full Resuscitation MAR Reviewed: Yes Vital Signs & Weight: Vital Signs (12 hours) Temp Pulse Resp BP Pulse Ox 08/26/18 10:55 98.0 F 85 16 94 L 08/26/18 08:00 98.2 F 84 16 135/60 99 Weight Admit Weight 310 lb Weight 310 lb I&O: 08/25/18 08/26/18 08/27/18 06:59 06:59 06:59 Intake Total 1700 1000 Balance 1700 1000 Result Diagrams: 08/26/18 04:51 08/26/18 04:51 Additional Labs: Accuchecks 08/26/18 08/25/18 08/25/18 11:14 19:13 16:29 POC Glucose 209 H 356 H 274 H 08/25/18 10:54 POC Glucose 298 H Phys Exam - Physical Examination HEENT: PERRLA, moist MMs Neck: no JVD, supple Respiratory: no wheezing, no rales Cardiovascular: RRR, no significant murmur Gastrointestinal: soft, non-tender, positive bowel sounds Musculoskeletal: no edema, pulses present Neurological: non-focal, moves all 4 limbs Psychiatric: normal affect, A&O x 3 Dx/Plan (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 Education about diet and execrcise program (3) Morbid obesity with BMI of 45.0-49.9, adult Code(s): E66.01 - MORBID (SEVERE) OBESITY DUE TO EXCESS CALORIES; Z68.42 - BODY MASS INDEX (BMI) 45.0-49.9, ADULT Status: Chronic (4) Panic attack Code(s): F41.0 - PANIC DISORDER [EPISODIC PAROXYSMAL ANXIETY] Status: Resolved - Plan will be getting rituximab today -: pt wants to see if she gets any untoward reaction and go home in am -: may anytime pt is ready, has been cleared for dc by onc -: on prednisone, lantus and metformin -: prednisone taper per hemeonc adv * . Review of Systems - Medications/Allergies Allergies/Adverse Reactions: Allergies Allergy/AdvReac Type Severity Reaction Status Date / Time iodine Allergy Verified 08/16/18 22:48 Medications: Current Medications Acetaminophen (Tylenol) 650 mg PO Q4H PRN PRN Reason: Headache/Fever/Mild Pain (1-3) Acetaminophen (Tylenol) 650 mg [place] Q4H PRN PRN Reason: Headache/Fever/Mild Pain (1-3) Acetaminophen (Tylenol) 1,000 mg PO ONE [facility] Stop: 08/26/18 21:00 Last Admin: 08/26/18 10:38 Dose: 1,000 mg Alprazolam (Xanax) 0.5 mg PO [facility] Last Admin: 08/25/18 21:55 Dose: 0.5 mg Bisacodyl (Dulcolax) 10 mg PO DAILYPRN PRN PRN Reason: Constipation Last Admin: 08/17/18 09:32 Dose: 10 mg Calcium Carbonate (Tums) 1,000 mg PO Q4H PRN PRN Reason: Heartburn or Indigestion Dextrose/Water (Dextrose 50%) 25 gm SLOW IVP PRN PRN PRN Reason: Hypoglycemia Diphenhydramine HCl (Benadryl) 25 mg IVP ONE [facility] Stop: 08/26/18 21:00 Last Admin: 08/26/18 10:38 Dose: 25 mg Folic Acid (Folvite) 1 mg PO DAILY [facility] Last Admin: 08/26/18 08:31 Dose: 1 mg Glucagon (Glucagon) 1 mg IM PRN PRN PRN Reason: Hypoglycemia Dextrose/Water (D5w) 1,000 mls @ 0 mls/hr IV .Q0M PRN PRN Reason: Hypoglycemia Insulin Glargine 30 units/ (Miscellaneous Medication) 0.3 mls @ 0 mls/hr SC QAM [facility] Last Admin: 08/26/18 10:02 Dose: 0.3 mls Insulin Glargine 30 units/ (Miscellaneous Medication) 0.3 mls @ 0 mls/hr SC HS [facility] Last Admin: 08/25/18 21:54 Dose: 0.3 mls Rituximab 915 mg/ Sodium (Chloride) 591.5 mls @ 0 mls/hr IVPB ONE [facility] Stop: 08/26/18 21:00 Last Admin: 08/26/18 10:50 Dose: 591.5 mls Insulin Human Lispro (Humalog) 0 units SC .AGGRESSIVE SLIDING PRN PRN Reason: Aggressive Correctional Scale Last Admin: 08/26/18 06:17 Dose: 6 unit Insulin Human Lispro (Humalog) 0 units SC .BEDTIME SLIDING SC PRN PRN Reason: Bedtime Correctional Scale Last Admin: 08/25/18 21:53 Dose: 5 unit Metformin HCl (Glucophage) 500 mg PO BID-[facility] Last Admin: 08/26/18 08:31 Dose: 500 mg Ondansetron HCl (Zofran Odt) 4 mg PO Q6H PRN PRN Reason: Nausea/Vomiting Ondansetron HCl (Zofran) 4 mg IVP Q6H PRN PRN Reason: Nausea/Vomiting Pantoprazole Sodium (Protonix) 40 mg PO DAILY [facility] Last Admin: 08/26/18 08:31 Dose: 40 mg Prednisone (Prednisone) 50 mg PO 0800,1600 [facility] Last Admin: 08/26/18 08:32 Dose: 50 mg Senna/Docusate Sodium (Senokot S) 2 tab PO BID PRN PRN Reason: Constipation Sodium Chloride (Flush - Normal Saline) 10 ml IVF Q12HR [facility] Last Admin: 08/26/18 10:03 Dose: 10 ml Sodium Chloride (Flush - Normal Saline) 10 ml IVF PRN PRN PRN Reason: Saline Flush Zolpidem Tartrate (Ambien) 5 mg PO HSPRN PRN PRN Reason: Insomnia Last Admin: 08/25/18 21:55 Dose: 5 mg
[2018-08-26] MEDS: Insulin Glargine 30 UNITS in Pre-Filled Syringe 1 EACH SC SCH (21:18)
[2018-08-26] MEDS: ALPRAZolam 0.5 MG TAB PO SCH (21:18)
[2018-08-26] MEDS: Zolpidem Tartrate 5 MG TAB PO PRN (21:18)
[2018-08-27 05:25] LABS: ALT (SGPT) 27 U/L (8-55); AST (SGOT) 12 U/L (5-34); Albumin 3.4 g/dL (3.5-5.0); Alkaline Phosphatase 95 U/L (40-150); Anion Gap 12 mmol/L (10-20); BUN (Urea Nitrogen) 17 mg/dL (7.0-18.7); Bilirubin, Total 0.7 mg/dL (0.2-1.2); Calc. Creatinine Clearance 226 mL/min (70-130); Carbon Dioxide 24 mmol/L (22-29); Chloride 101 mmol/L (98-107); Estimated GFR-MDRD 82; Globulin 4.1 g/dL (2.4-3.5); Glucose 282 mg/dL (70-105); Potassium 4.2 mmol/L (3.5-5.1); Protein, Total 7.5 g/dL (6.0-8.3); Sodium 133 mmol/L (136-145)
[2018-08-27 05:32] LABS: Anisocytosis SLIGHT = 6-15 cells (100X) (0-5/hpf); Band 1 % (5-11); Hemoglobin 7.3 g/dL (12.0-16.0); Hypochromia SLIGHT = 6-15 cells (100X) (0-5/hpf); Lymphocytes 18 % (21-51); MDiff Complete? YES; Macrocytosis SLIGHT = 6-15 cells (100X) (0-5/hpf); Mean Corpuscular HGB CONC 31.6 g/dL (32.0-36.0); Mean Corpuscular Hemoglobin 33.3 pg (27.0-31.0); Mean Platelet Volume 7.7 fL (7.4-10.4); Monocytes 5 % (0-10); Neutrophil 76 % (42-75); Nucleated RBC 5 % (0); Platelet Count 131 thou/uL (130-400); Platelet Morphology Comment Appears Adequate; Polychromasia MODERATE = 3-4 cells (100X) (0-2/hpf); RBC Distribution Width 22.1 % (11.5-14.5); White Blood Cell (WBC) Count 8.7 thou/uL (4.8-10.8)
[2018-08-27] MEDS: HumaLOG 300 UNITS/3 ML VIAL SC PRN (05:53)
[2018-08-27 08:36] VITALS: BP 121/73; TEMP 98.2
[2018-08-27] MEDS: Insulin Glargine 30 UNITS in Pre-Filled Syringe SC SCH (08:49)
[2018-08-27] MEDS: metFORMIN 500 MG TAB PO SCH (08:50)
[2018-08-27] MEDS: predniSONE 50 MG TAB PO SCH (08:50)
[2018-08-27] MEDS: Folic Acid 1 MG TAB PO SCH (08:50)
--- NOTE | 2018-08-27 13:33 | PDOC.PN ---
- Subjective Encounter Start Date: 08/27/18 Encounter Start Time: 10:25 Subjective: feels good, tolerated rituxan infusion - Objective Resuscitation Status - Order Detail: 08/17/18 02:36 Resuscitation Status Routine Resuscitation Status: FULL: Full Resuscitation MAR Reviewed: Yes Vital Signs & Weight: Vital Signs (12 hours) Temp Pulse Resp BP Pulse Ox 08/27/18 08:00 98.2 F 90 18 121/73 97 Weight Admit Weight 310 lb Weight 310 lb I&O: 08/26/18 08/27/18 08/28/18 06:59 06:59 06:59 Intake Total 1000 1400 Balance 1000 1400 Result Diagrams: 08/27/18 04:51 08/27/18 04:51 Additional Labs: Accuchecks 08/27/18 08/26/18 08/26/18 11:15 19:25 17:03 POC Glucose 221 H 311 H 262 H Phys Exam - Physical Examination HEENT: PERRLA, moist MMs Neck: no JVD, supple Respiratory: no wheezing, no rales Cardiovascular: RRR, no significant murmur Gastrointestinal: soft, non-tender, positive bowel sounds Musculoskeletal: no edema, pulses present Neurological: non-focal, moves all 4 limbs Psychiatric: normal affect, A&O x 3 Dx/Plan (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 Education about diet and execrcise program (3) Morbid obesity with BMI of 45.0-49.9, adult Code(s): E66.01 - MORBID (SEVERE) OBESITY DUE TO EXCESS CALORIES; Z68.42 - BODY MASS INDEX (BMI) 45.0-49.9, ADULT Status: Chronic (4) Panic attack Code(s): F41.0 - PANIC DISORDER [EPISODIC PAROXYSMAL ANXIETY] Status: Resolved - Plan hemostable -: Hb around 7.5g -: dc pt home -: prednisone taper per onc * . Review of Systems - Medications/Allergies Allergies/Adverse Reactions: Allergies Allergy/AdvReac Type Severity Reaction Status Date / Time iodine Allergy Verified 08/16/18 22:48
[2018-08-28 15:53] LABS: ANA Symphony (Qualitative) Negative (Negative); ANA Symphony (Quantitative) 0.1 Ratio (< 0.7 Negative); dsDNA IgG Antibody Less than 0.5 IU/mL (<10 Negative)
--- NOTE | 2018-08-29 16:11 | DIS ---
DATE OF ADMISSION: 08/16/2018 DATE OF DISCHARGE: 08/27/2018 DISCHARGE DISPOSITION: Home. 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 PROCEDURES DONE DURING HOSPITALIZATION: Discharge H and H 7.3 and 23, platelet count 131. Hemoglobin had dropped down to 5.0 on the with hematocrit of 14, retic count was 18. PT, INR within normal limits, PTT 22. BUN 17, creatinine 0.8, albumin is 3.4, total bilirubin was 4.5, serum iron 264, TIBC 260, LDH 287, B12 of 398, folic acid 8.6. CÉSAR screen was negative. HIV 1 and 2 antigen and antibody nonreactive. INPATIENT CONSULT: Dr. Lisa for Oncology. DISCHARGE MEDICATIONS: 1. Prednisone 50 mg twice daily. Oncologist will be tapering down with followup visit in the next week. 2. Metformin 500 mg p.o. twice daily for glucose intolerance due to steroids. 3. Lantus 15 units subcu daily again for glucose intolerance, which needs to be tapered and discontinued first prior to discontinuing metformin based on the tapering of prednisone. Folic acid 1 mg p.o. daily. 4. Protonix 40 mg p.o. daily. ALLERGIES: ALLERGIC TO IODINE. DISCHARGE PLAN: The patient to follow up with Dr. Lisa in 3 to 4 days. BRIEF COURSE DURING HOSPITALIZATION: The patient initially was sent from Dr. Lisa's office for autoimmune hemolytic anemia. She was recently hospitalized and was given steroids, which did respond initially, but the patient came back with hemoglobin of 5 and was readmitted. She was again placed on high-dose steroids. The patient's H and H did not respond to steroids this time and had to be placed on rituximab infusions. Her hemoglobin is slowly improving. At the time of discharge, it is 7.3. This has been a steady increase. She has been cleared by Dr. Lisa for discharge. The patient has followup appointment either on Thursday or Thursday with labs at Dr. Lisa's office. She is otherwise hemodynamically stable, ambulating and eating well. Please note, the patient has glucose intolerance with hyperglycemia due to steroids. Her prednisone is being slowly tapered by Oncology. She has been advised to first discontinue her Lantus, then metformin based on the taper. She will require daily fingerstick glucose to be measured in the morning and recorded. Please see a [id number] documentation for the day of discharge on [facility]. Job ID: [id number]
--- NOTE | 2018-08-30 07:16 | DIS ---
DATE OF ADMISSION: 08/16/2018 DATE OF DISCHARGE: 08/27/2018 DISCHARGE DISPOSITION: Home. PRIMARY DISCHARGE DIAGNOSES: 1. Autoimmune hemolytic anemia with warm antibody. 2. Hyperglycemia from glucose intolerance due to steroids. 3. Morbid obesity. 4. Panic attacks. PROCEDURES DONE DURING HOSPITALIZATION: The patient has an H and H of 7.3 and 23 with platelet count of 131 on the day of admission, had a hemoglobin of 5.5 on the day of admission. Retic count was 18. BUN and creatinine 17 and 0.8 on the day of discharge. Albumin 3.4. Fingerstick glucose ranging from 209 to 311. HIV-1 and HIV-2 nonreactive. DISCHARGE MEDICATIONS: 1. Protonix 40 mg p.o. daily. 2. Folic acid 1 mg p.o. daily. 3. Lantus 15 units subcu q.a.m. 4. Metformin 500 mg p.o. twice daily. 5. Prednisone 50 mg p.o. twice daily. ALLERGIES: ALLERGIC TO IODINE. INPATIENT CONSULT: Dr. Lisa for Oncology. BRIEF COURSE DURING HOSPITALIZATION: The patient initially got admitted for autoimmune hemolytic anemia with hemoglobin of 5. Her previous discharge hemoglobin was 8.2 g. She was recently hospitalized for similar issue. She has had consultation with Dr. Lisa. The patient was on steroids for the same, despite which her hemoglobin declined. She was placed on rituximab infusions and this has been slowly and steadily improving. She was closely monitored on the Oncology floor. She has had 2 units of packed cell transfusions given. No evidence of bleeding as such. Prior to discharge, she is ambulating and eating well. Her fingerstick glucose has been elevated due to prednisone and glucose intolerance. Her HbA1c was of around 5. The patient has been advised to follow heart healthy, 1800 kilocalorie diet until she is on prednisone. She is on a tapering prednisone at present. The patient needs to slowly discontinue initially Lantus, then slowly taper and discontinue metformin based on the fingerstick glucose and prednisone taper schedule. She has followup appointment with Dr. Lisa and she will be shortly discharged home. Job ID: [id number]
== END 2018-08-27 11:37 | disposition home or self-care (01) | DRG 809 ==
LOC: ONC 21:42
PROVIDERS: ADMIT Internal Medicine; ATTEND Internal Medicine
PROC: 30233N1 Transfusion of Nonautologous Red Blood Cells into Peripheral Vein, Percutaneous Approach (ICD-10-PCS; principal; 2018-08-17)
DX: D59.1 Other autoimmune hemolytic anemias (principal); Z68.42 Body mass index [BMI] 45.0-49.9, adult; E66.01 Morbid (severe) obesity due to excess calories; D72.829 Elevated white blood cell count, unspecified; R73.9 Hyperglycemia, unspecified; F41.0 Panic disorder [episodic paroxysmal anxiety]
CPT/HCPCS: 36415; 36416; 36430; 80053; 82248; 82607; 82746; 83010; 83540; 83550; 83615; 84100; 84550; 85025; 85046; 85060; 85610; 85730; 86038; 86225; 86850; 86870; 86900; 86901; 86922; 87389; J1100; J1200; J1459; J1568; J1825; J7050; J7506; J9312; P9016; Q0163

== ENCOUNTER 2018-09-08 21:01 | Emergency (ER) | payer BC ==
--- NOTE | 2018-09-08 21:45 | RAD ---
TWO VIEWS SOFT TISSUE NECK: 09/08/18 HISTORY: Patient reports eating chicken and feels a chicken bone in her throat. AP and lateral views soft tissue neck obtained. No definite evidence of radiopaque chicken bone seen. No evidence of prevertebral soft tissue swellin g seen. If there has been significant injury and there is concern for mucosal injury, correlation wit h direct visualization and ENT consultation is recommended. IMPRESSION: No definite visible evidence of radiopaque density seen. Normal hyoid bone and thyroid cartilage are visualized. POS: [facility]
[2018-09-08] MEDS ORDERED: Lidocaine Viscous Sol 2% 15 ml UD Cup ONE (21:49)
== END 2018-09-08 21:55 | disposition home or self-care (01) ==
LOC: ERS 21:01
DX: S27.818A Other injury of esophagus (thoracic part), initial encounter (principal); F41.9 Anxiety disorder, unspecified; D59.9 Acquired hemolytic anemia, unspecified; Z79.899 Other long term (current) drug therapy; Z79.4 Long term (current) use of insulin; W22.8XXA Striking against or struck by other objects, initial encounter
CPT/HCPCS: 70360

== ENCOUNTER 2018-10-22 10:54 | Emergency (ER) | payer BC ==
--- NOTE | 2018-10-22 11:32 | RAD ---
CHEST 2 VIEWS: Date: 10/22/18 HISTORY: Chest pain. COMPARISON: None. FINDINGS: Lungs are clear. No pneumothorax or effusion. Cardiac silhouette and mediastinal contour within benito l limits. IMPRESSION: No acute intrathoracic abnormality. POS: [facility]
[2018-10-22 12:32] LABS: #Eosinphils 0.1 thou/uL (0.0-0.7); #Lymphocytes 1.5 thou/uL (1.20-3.40); #Monocytes 0.9 thou/uL (0.11-0.59); #Neutrophils 10.7 thou/uL (1.40-6.50); %Basophils 0.2 % (0.0-1.0); %Eosinophils 0.7 % (0.0-10.0); %Lymphocytes 11.3 % (21.0-51.0); %Monocytes 6.8 % (0.0-10.0); Hemoglobin 12.3 g/dL (12.0-16.0); Mean Corpuscular HGB CONC 33.5 g/dL (32.0-36.0); Mean Corpuscular Hemoglobin 29.5 pg (27.0-31.0); Mean Corpuscular Volume 87.9 fL (78.0-98.0); Mean Platelet Volume 7.1 fL (7.4-10.4); Platelet Count 350 thou/uL (130-400); RBC Distribution Width 13.6 % (11.5-14.5); Red Blood Cell (RBC) Count 4.17 mill/uL (4.20-5.40); White Blood Cell (WBC) Count 13.3 thou/uL (4.8-10.8)
[2018-10-22 13:00] LABS: ALT (SGPT) 19 U/L (8-55); AST (SGOT) 12 U/L (5-34); Albumin 3.9 g/dL (3.5-5.0); Alkaline Phosphatase 73 U/L (40-150); Anion Gap 16 mmol/L (10-20); BUN (Urea Nitrogen) 9 mg/dL (7.0-18.7); Bilirubin, Total 0.4 mg/dL (0.2-1.2); Calc. Creatinine Clearance 0 mL/min (70-130); Calcium 9.7 mg/dL (7.8-10.44); Carbon Dioxide 23 mmol/L (22-29); Chloride 103 mmol/L (98-107); Estimated GFR-MDRD Greater than 90; Globulin 2.7 g/dL (2.4-3.5); Glucose 174 mg/dL (70-105); Potassium 3.6 mmol/L (3.5-5.1); Protein, Total 6.6 g/dL (6.0-8.3); Sodium 138 mmol/L (136-145)
[2018-10-22] MEDS ORDERED: ISOVUE-370 76%-LOCM 1 ML ONE (13:41)
[2018-10-22] MEDS ORDERED: Famotidine/PF 20 mg/2ml Vial ONE (13:45)
[2018-10-22] MEDS ORDERED: methylPREDNISolone Sod Succ/PF 125 MG/2 ML VIAL ONE (13:45)
[2018-10-22] MEDS ORDERED: diphenhydrAMINE 50 MG/ML VIAL ONE (13:45)
--- NOTE | 2018-10-22 16:19 | CT ---
CTA OF THE THORAX UTILIZING IV CONTRAST AND 3D REFORMATTED IMAGING : 10/22/18 INDICATION: History of burning central chest pain with tachycardia. FINDINGS: The timing of the contrast bolus is somewhat suboptimal on evaluating the subsegmental pulmonary embo matti; however, no definite central or lobar pulmonary embolus is evident. There is no evidence to sugg est right heart dysfunction. There is a small pericardial effusion present. There is nonspecific hazy air space opacity seen within both lungs. No pleural effusion is grossly evident. No enlarged lymph nodes are present. There is a small hiatal hernia. The spleen is enlarged measuring 14.9 cm. The vis ualized adrenal glands are unremarkable appearing. No acute osseous abnormality is evident. IMPRESSION: 1. No central pulmonary embolus demonstrated. 2. Nonspecific hazy air space opacity seen diffusely throughout both lungs. Differential conside rations include atypical infectious process including entities such as viral pneumonia. Alternativel y, this could be related to inflammatory etiology such a hypersensitivity pneumonitis. Pulmonary vanessa a could have a similar appearance. Recommend followup imaging. 3. Small pericardial effusion. 4. There is mild splenomegaly which is nonspecific. POS: [facility]
== END 2018-10-22 17:02 | disposition home or self-care (01) ==
LOC: ERS 10:54
DX: J18.9 Pneumonia, unspecified organism (principal); D59.1 Other autoimmune hemolytic anemias; F41.9 Anxiety disorder, unspecified; Z79.84 Long term (current) use of oral hypoglycemic drugs; Z79.899 Other long term (current) drug therapy
CPT/HCPCS: 36415; 71046; 71275; 80053; 84443; 85025; 85379; 96361; 96374; 96375; J1200; J2930; Q9966; S0028

== ENCOUNTER 2018-11-12 11:57 | Emergency (ER) | payer BC ==
--- NOTE | 2018-11-12 12:17 | RAD ---
PA AND LATERAL VIEWS CHEST: HISTORY: Cough. FINDINGS: Comparison is made with the earlier exam of 10:50 a.m. from the same date. The heart size is normal. The lungs are expanded without focal areas of consolidation, pneumothorax, or pleural effusions. No acute osseous abnormalities are seen. IMPRESSION: No radiographic evidence of acute cardiopulmonary process. POS: [facility]
== END 2018-11-12 13:46 | disposition home or self-care (01) ==
LOC: ERS 11:57
DX: J20.9 Acute bronchitis, unspecified (principal); F41.9 Anxiety disorder, unspecified; D58.9 Hereditary hemolytic anemia, unspecified; Z79.4 Long term (current) use of insulin; Z79.899 Other long term (current) drug therapy
CPT/HCPCS: 71046

== ENCOUNTER 2019-12-26 17:37 | Inpatient (IN) | payer BC, OTHER ==
[2019-12-25 17:12] LABS: SARS-CoV-2 MS2 Positive; SARS-CoV-2 N Gene Negative; SARS-CoV-2 S Gene Negative; SARS-CoV-2 orf1ab Negative
[~2019-12-26 17:37] MED LIST: Bupivacaine 0.25% HCL 30 ML VIAL ONE; Sodium Chloride 0.9% (PF) 10 ML VIAL ONE
[2019-12-26] MEDS ORDERED: Diphenoxylate HCl/Atropine Tablet PO PRN ×2 (18:09)
[2019-12-26] MEDS ORDERED: Lidocaine 1% (PF) 30 ML VIAL SC PRN (18:09)
[2019-12-26] MEDS ORDERED: hydrALAZINE 20 MG/ML VIAL SLOW IVP PRN (18:09)
[2019-12-26] MEDS ORDERED: Docusate 100 MG CAP PO PRN (18:09)
[2019-12-26] MEDS ORDERED: HYDROcodone/Acetaminophen 5/325 mg Tablet PO PRN ×2 (18:09)
[2019-12-26] MEDS ORDERED: Acetaminophen 500 MG TAB PO PRN (18:09)
[2019-12-26] MEDS ORDERED: Misoprostol 200 MCG TAB PR PRN (18:09)
[2019-12-26] MEDS ORDERED: Ibuprofen 800 MG TAB PO PRN (18:09)
[2019-12-26] MEDS ORDERED: Zolpidem Tartrate 5 MG TAB PO PRN (18:09)
[2019-12-26] MEDS ORDERED: Ondansetron PF 4 MG/2 ML Vial IVP PRN (18:09)
[2019-12-26] MEDS ORDERED: Promethazine HCl 25 MG/ML VIAL IM PRN (18:09)
[2019-12-26] MEDS ORDERED: Butorphanol Tartrate 1 MG/ML VIAL SLOW IVP PRN (18:09)
[2019-12-26] MEDS ORDERED: NS / Oxytocin 40 units/1000ml 1,000 ML IV PRN (18:09)
[2019-12-26] MEDS ORDERED: NS w/ Oxytocin 10 units 500 ML IV SCH (18:09)
[2019-12-26 18:32] LABS: Hemoglobin 12.1 g/dL (12.0-16.0); Mean Corpuscular HGB CONC 32.9 g/dL (32.0-36.0); Mean Corpuscular Hemoglobin 25.2 pg (27.0-31.0); Mean Corpuscular Volume 76.8 fL (78.0-98.0); Mean Platelet Volume 9.8 fL (7.4-10.4); Platelet Count 226 thou/uL (130-400); RBC Distribution Width 15.2 % (11.5-14.5); Red Blood Cell (RBC) Count 4.81 mill/uL (4.20-5.40); White Blood Cell (WBC) Count 12.7 thou/uL (4.8-10.8)
[2019-12-26 18:35] VITALS: BMI 50.0
[2019-12-26 19:08] LABS: Syphilis Antibody Nonreactive (Nonreactive); Syphilis Antibody Index 0.02 S/CO (<1.00 Non-Reactive)
[2019-12-26 19:09] LABS: HBSAg Index 0.16 S/CO (0-0.99); HIV (1/2) Antibody/Antigen Non-Reactive (NonReactive); HIV 1/2 INDEX 0.09 S/CO (<1.00); Hep B Surf Ag Non-Reactive S/CO (NonReactive)
[2019-12-26] MEDS: Misoprostol 100 MCG TAB VAG SCH (19:17)
[2019-12-26] MEDS ORDERED: metFORMIN 500 MG TAB PO SCH (21:15)
[2019-12-27] MEDS: Misoprostol 100 MCG TAB VAG SCH ×4 (01:53→23:53)
[2019-12-27] MEDS: Lactated Ringer's 1,000 ML IV SCH ×3 (04:41→15:11)
[2019-12-27] MEDS: NS w/ Oxytocin 10 units 500 ML IV SCH ×2 (06:03→20:40)
[2019-12-27] MEDS ORDERED: Fentanyl 4 mcg/Bup 0.1% Cadd 100 ML ONE ×2 (09:32→16:42)
[2019-12-27] MEDS ORDERED: diphenhydrAMINE 50 MG/ML VIAL IVP PRN (10:34)
[2019-12-27] MEDS ORDERED: Lactated Ringer's 500 ML IV PRN (10:34)
[2019-12-27] MEDS ORDERED: Acetaminophen 325 MG TAB PO PRN (10:34)
[2019-12-27] MEDS ORDERED: Promethazine HCl 25 MG/ML VIAL IM PRN (10:34)
[2019-12-27] MEDS ORDERED: Naloxone HCl 0.4 mg/ml Vial IVP PRN ×2 (10:34)
[2019-12-27] MEDS ORDERED: EPHEDRINE 25 MG/5 ML SYRINGE SLOW IVP PRN (10:34)
[2019-12-27] MEDS ORDERED: Ondansetron PF 4 MG/2 ML Vial IVP PRN (10:34)
[2019-12-27] MEDS ORDERED: Communication Order-Pharmacy FS SCH (10:45)
[2019-12-27] MEDS: Dextrose 5%-Lactated Ringers 1,000 ML IV SCH (15:11)
[2019-12-27] MEDS: Fentanyl 4 mcg/Bupivacaine 0.1% Cassette 100 ML EPIDURAL SCH ×2 (16:49→22:05)
[2019-12-27] MEDS: metFORMIN 500 MG TAB PO SCH (20:39)
[2019-12-27] MEDS ORDERED: Insulin Glargine 17 UNITS in Pre-Filled Syringe 1 EACH SC SCH (21:00)
[2019-12-27] MEDS ORDERED: Lidocaine 1% (PF) 30 ML VIAL ONE (21:45)
[2019-12-27] MEDS ORDERED: NS / Oxytocin 40 units/1000ml 1,000 ML ONE (21:46)
[2019-12-28] MEDS: Dextrose 5%-Lactated Ringers 1,000 ML IV SCH (00:14)
[2019-12-28] MEDS: Misoprostol 100 MCG TAB VAG SCH ×2 (00:14→06:22)
[2019-12-28] MEDS ORDERED: Calcium Carbonate 500 MG ChewTAB PO SCH (01:15)
[2019-12-28] MEDS ORDERED: hydrALAZINE 20 MG/ML VIAL SLOW IVP PRN (02:29)
[2019-12-28] MEDS ORDERED: Ondansetron PF 4 MG/2 ML Vial IVP PRN (02:29)
[2019-12-28] MEDS ORDERED: diphenhydrAMINE 25 MG CAP PO PRN (02:29)
[2019-12-28] MEDS ORDERED: Acetaminophen/Codeine 30-300mg Tablet PO PRN ×2 (02:29)
[2019-12-28] MEDS ORDERED: Benzocaine-Menthol 82.5 ML CAN TOP PRN (02:29)
[2019-12-28] MEDS ORDERED: Bisacodyl 10 MG SUPP PR PRN (02:29)
[2019-12-28] MEDS ORDERED: Preparation H Ointment 28 GM TUBE PR PRN (02:29)
[2019-12-28] MEDS ORDERED: Milk Of Magnesia 30 ML UDCUP PO PRN (02:29)
[2019-12-28] MEDS ORDERED: Lanolin Ointment 7 GM TUBE TOP PRN (02:29)
[2019-12-28] MEDS ORDERED: Zolpidem Tartrate 5 MG TAB PO PRN (02:29)
[2019-12-28] MEDS ORDERED: Misoprostol 200 MCG TAB VAG PRN (02:29)
[2019-12-28] MEDS ORDERED: NS / Oxytocin 40 units/1000ml 1,000 ML IV SCH (02:30)
[2019-12-28] MEDS: Ibuprofen 800 MG TAB PO SCH ×3 (04:37→22:05)
[2019-12-28] MEDS: Ferrous Sulfate 325 MG TAB PO SCH ×2 (08:30→11:39)
[2019-12-28] MEDS: Prenatal Vitamin 1 TAB PO SCH (08:31)
[2019-12-28] MEDS: Docusate Calcium (SURFAK) 240 MG CAP PO SCH ×2 (08:31→20:33)
[2019-12-28] MEDS ORDERED: Adacel (T-DAP) 0.5 ML SYRINGE IM ONE (09:00)
[2019-12-29] MEDS: Ibuprofen 800 MG TAB PO SCH ×2 (05:14→14:34)
[2019-12-29] MEDS: Ferrous Sulfate 325 MG TAB PO SCH (07:47)
[2019-12-29] MEDS: Docusate Calcium (SURFAK) 240 MG CAP PO SCH (07:47)
[2019-12-29] MEDS: Prenatal Vitamin 1 TAB PO SCH (07:47)
[2019-12-29 09:29] VITALS: BP 130/75; TEMP 98.6
== END 2019-12-29 15:35 | disposition home or self-care (01) | DRG 806 ==
LOC: L&D 17:37 → 3SE 12-28 05:59 → 3SW 12-28 19:18
PROVIDERS: ADMIT Obstetrics & Gynecology; ATTEND Obstetrics & Gynecology
PROC: 10E0XZZ Delivery of Products of Conception, External Approach (ICD-10-PCS; principal; 2019-12-26)
PROC: 0HQ9XZZ Repair Perineum Skin, External Approach (ICD-10-PCS; 2019-12-26)
PROC: 10907ZC Drainage of Amniotic Fluid, Therapeutic from Products of Conception, Via Natural or Artificial Opening (ICD-10-PCS; 2019-12-26)
PROC: 3E033VJ Introduction of Other Hormone into Peripheral Vein, Percutaneous Approach (ICD-10-PCS; 2019-12-26)
PROC: 3E0P7VZ Introduction of Hormone into Female Reproductive, Via Natural or Artificial Opening (ICD-10-PCS; 2019-12-26)
DX: O24.12 Pre-existing type 2 diabetes mellitus, in childbirth (principal); D59.1 Other autoimmune hemolytic anemias; Z37.0 Single live birth; O63.9 Long labor, unspecified; E11.9 Type 2 diabetes mellitus without complications; O99.02 Anemia complicating childbirth; O70.0 First degree perineal laceration during delivery; Z3A.39 39 weeks gestation of pregnancy; Z11.59 Encounter for screening for other viral diseases; Z79.4 Long term (current) use of insulin; Z91.041 Radiographic dye allergy status
CPT/HCPCS: 36415; 36416; 51702; 85027; 86780; 86850; 86900; 86901; 86922; 87340; 87389; 87635; J0360; J1815; J2001; J2405; J2590; S0020; U0003

== ENCOUNTER 2020-01-01 00:56 | Day surgery (SDC) | payer BC ==
[2020-01-01 03:11] LABS: #Eosinphils 0.2 thou/uL (0.0-0.7); #Lymphocytes 2.2 thou/uL (1.20-3.40); #Monocytes 0.7 thou/uL (0.11-0.59); #Neutrophils 5.7 thou/uL (1.40-6.50); %Basophils 0.3 % (0.0-1.0); %Eosinophils 2.6 % (0.0-10.0); %Lymphocytes 25.2 % (21.0-51.0); %Monocytes 7.4 % (0.0-10.0); %Neutrophils 64.5 % (42.0-75.0); Hemoglobin 12.5 g/dL (12.0-16.0); Mean Corpuscular HGB CONC 31.7 g/dL (32.0-36.0); Mean Corpuscular Hemoglobin 24.9 pg (27.0-31.0); Mean Corpuscular Volume 78.7 fL (78.0-98.0); Mean Platelet Volume 8.5 fL (7.4-10.4); Platelet Count 284 thou/uL (130-400); RBC Distribution Width 14.7 % (11.5-14.5); Red Blood Cell (RBC) Count 5.02 mill/uL (4.20-5.40); White Blood Cell (WBC) Count 8.8 thou/uL (4.8-10.8)
[2020-01-01] MEDS ORDERED: Magnesium Sulfate 20 gm/500 ml 20 GM/500 ML BAG ONE (03:14)
[2020-01-01 03:15] LABS: Bacteria/HPF None Seen HPF (None Seen); Bilirubin Negative (Negative); Blood, Urine 2+ (Negative); Clarity Clear (Clear); Glucose, Urine (Dipstick) Normal (Negative); Leukocyte 250 Leu/uL (Negative); Nitrite Negative (Negative); Protein, Urine (Dipstick) 10 mg/dL (Neg-Trace); RBC/HPF 21-50 HPF (0-3); Squamous Epithelial 0-3 HPF (0-3); Urobilinogen Normal mg/dL (Less than 2)
[2020-01-01 03:30] LABS: ALT (SGPT) 17 U/L (8-55); AST (SGOT) 18 U/L (5-34); Albumin 3.6 g/dL (3.5-5.0); Alkaline Phosphatase 162 U/L (40-110); Anion Gap 13 mmol/L (10-20); BUN (Urea Nitrogen) 10 mg/dL (7.0-18.7); Bilirubin, Total 0.3 mg/dL (0.2-1.2); Calc. Creatinine Clearance 0 mL/min (70-130); Calcium 9.3 mg/dL (7.8-10.44); Carbon Dioxide 25 mmol/L (22-29); Chloride 108 mmol/L (98-107); Estimated GFR-MDRD Greater than 90; Globulin 3.2 g/dL (2.4-3.5); Glucose 87 mg/dL (70-105); Potassium 3.9 mmol/L (3.5-5.1); Protein, Total 6.8 g/dL (6.0-8.3); Sodium 142 mmol/L (136-145)
[2020-01-01] MEDS ORDERED: hydrALAZINE 20 MG/ML VIAL SLOW IVP PRN (03:34)
[2020-01-01] MEDS ORDERED: Ondansetron PF 4 MG/2 ML Vial IVP PRN (03:34)
[2020-01-01] MEDS ORDERED: Promethazine HCl 25 MG/ML VIAL IM PRN (03:34)
[2020-01-01] MEDS ORDERED: Calcium Gluconate 4.6 MEQ in Sodium Chloride 0.9% 100 ML IVPB PRN (03:34)
[2020-01-01] MEDS ORDERED: Magnesium Sulfate 20 gm/500 ml 20 GM/500 ML BAG IVPB SCH (03:45)
[2020-01-01] MEDS ORDERED: Magnesium Sulfate 20 GM/WATER 500 ML BAG IVPB SCH (03:45)
[2020-01-01 03:54] VITALS: BP 138/67; TEMP 98; BMI 48.6
[2020-01-01] MEDS ORDERED: diphenhydrAMINE 50 MG/ML VIAL IVP SCH (04:15)
[2020-01-01] MEDS ORDERED: Metoclopramide HCl 10 MG/2 ML VIAL IVP SCH (04:15)
[2020-01-01 04:25] LABS: Creatinine, Urine 156.14 mg/dL (47-110)
--- NOTE | 2020-01-01 04:29 | PDOC.FPROB ---
FMR OB H&P: HPI - History of Present Illness Chief Complaint: Headache Indentification: 29 yo F post History of Present Illness: Pt comes in complaining of headache since yesterday afternoon. Reports taking ibuprofen and tylenol #3 and not helping much. Reports pain as achey. Denies any fever or chills. Denies any vision changes. Denies any numbness or tingling. Pt reports some swelling in her feet but reports that has been going on for a few months. Pt denies any chest pain or sob. Pt denies any n/v/d/c. Pt delivered 4 days ago via . Denies any complications during course. Reports light lochia. Primary Care Physician: Doreen FMR OB H&P: Current - Care : 2 Para: 2 Gestational age: Delivered FMR OB H&P: History - Past Medical History PMH: DM type II on lantus and metformin, Autoimmune hemolytic anemia, - OB History OB History: 2 - Surgical History Sx History: None - Social History Social History: Denies any smoking, drinking or illicit drug use - Family History Family History: Noncontributory FMR OB H&P: Medications - Current Home Medications: Medication Instructions Recorded Confirmed Type metFORMIN [Glucophage] 500 mg PO BID-WM #30 tab 08/27/18 01/01/20 Rx Insulin Glargine,Hum.Rec.Anlog 17 unit SC DAILY 12/26/19 01/01/20 History [Lantus Solostar] Allergies/Adverse Reactions: Allergies Allergy/AdvReac Type Severity Reaction Status Date / Time iodine Allergy Emesis Verified 12/26/19 18:31 No Known Drug Allergies Allergy Verified 01/01/20 03:42 FMR OB H&P: ROS - Review of Systems General: denies: fever/chills, weight/appetite/sleep changes, fatigue Eyes: denies: vision changes, double vision, scotomas, floaters ENT: denies: nasal congestion, sinus pain/pressure Cardiovascular: reports: edema (reports chronic swelling in feet). denies: chest pain Gastrointestinal: denies: abdominal pain, indigestion, bloating, cramping, nausea, vomiting, diarrhea, constipation Genitourinary (Female): denies: incontinence, dysuria, hematuria, polyuria, hesitancy, vaginal discharge, vaginal bleeding Musculoskeletal: denies: pain Neurologic: reports: headache. denies: numbness, seizures, weakness Integumentary: denies: itching, rash Hematologic/Lymphatic: denies: prolonged or excessive bleeding Psychological: denies: depression, anxiety FMR OB H&P: Vital Signs - Maternal Vital signs: Vital Signs - First Documented Temp Pulse Resp BP 98.0 F 83 18 138/67 01/01/20 02:51 01/01/20 02:51 01/01/20 02:51 01/01/20 02:51 FMR OB H&P: Physical Exam - Physical Exam General: NAD, awake, alert and oriented HEENT: normocephalic and atraumatic, PERRLA, grossly normal vision, grossly normal hearing Neck: supple, FROM, trachea midline Heart: RRR, normal S1/S2, no murmurs/rubs/gallops, pulses present Deviation from normal: Trace edema in feet bilaterally General: CTAB, no respiratory distress, good air movement, no rales/rhonchi, no wheezing, no retractions Abdomen: soft, gravid, fundus(cm), non-tender, bowel sound present, no masses, no hernias Musculoskeletal: normal gait and station, pulses present, FROM in all four extremities Neurological: cranial nerves II through XII intact, sensation to pain,touch and proprioception grossly normal Skin: no rash Lymphatic: no unusual bruising or bleeding FMR OB H&P: Results - Labs Lab results: Laboratory Results - last 24 hr 01/01/20 01/01/20 01/01/20 02:58 02:58 02:59 WBC 8.8 RBC 5.02 Hgb 12.5 Hct 39.5 MCV 78.7 MCH 24.9 L MCHC 31.7 L RDW 14.7 H Plt Count 284 MPV 8.5 Neutrophils % 64.5 Lymphocytes % 25.2 Monocytes % 7.4 Eosinophils % 2.6 Basophils % 0.3 Neutrophils # 5.7 Lymphocytes # 2.2 Monocytes # 0.7 H Eosinophils # 0.2 Basophils # 0.0 Sodium 142 Potassium 3.9 Chloride 108 H Carbon Dioxide 25 Anion Gap 13 BUN 10 Creatinine 0.70 Estimated GFR (MDRD) Greater than 90 Glucose 87 Calcium 9.3 Total Bilirubin 0.3 AST 18 ALT 17 Alkaline Phosphatase 162 H Serum Total Protein 6.8 Albumin 3.6 Globulin 3.2 Albumin/Globulin Ratio 1.1 L Urine Color Yellow Urine Clarity Clear Urine pH 5.5 Ur Specific Fe [employer] 1.027 Urine Protein 10 Urine Glucose (UA) Normal Urine Ketones Negative Urine Blood 2+ A Urine Nitrite Negative Urine Bilirubin Negative Urine Urobilinogen Normal Ur Leukocyte Esterase 250 A Urine RBC 21-50 A Urine WBC 11-20 A Ur Squamous Epith Cells 0-3 Urine Bacteria None Seen U Random Total Protein Urine Creatinine 01/01/20 02:59 WBC RBC Hgb Hct MCV MCH MCHC RDW Plt Count MPV Neutrophils % Lymphocytes % Monocytes % Eosinophils % Basophils % Neutrophils # Lymphocytes # Monocytes # Eosinophils # Basophils # Sodium Potassium Chloride Carbon Dioxide Anion Gap BUN Creatinine Estimated GFR (MDRD) Glucose Calcium Total Bilirubin AST ALT Alkaline Phosphatase Serum Total Protein Albumin Globulin Albumin/Globulin Ratio Urine Color Urine Clarity Urine pH Ur Specific Fe [employer] Urine Protein Urine Glucose (UA) Urine Ketones Urine Blood Urine Nitrite Urine Bilirubin Urine Urobilinogen Ur Leukocyte Esterase Urine RBC Urine WBC Ur Squamous Epith Cells Urine Bacteria U Random Total Protein 13 Urine Creatinine 156.14 H FMR OB H&P: A/P - Problem List (1) Headache Current Visit: Yes Status: Acute Code(s): R51 - HEADACHE (2) Elevated blood-pressure reading without diagnosis of hypertension Current Visit: Yes Status: Acute Code(s): R03.0 - ELEVATED BLOOD-PRESSURE READING, W/O DIAGNOSIS OF HTN (3) Vaginal delivery Current Visit: No Status: Acute Code(s): O80 - ENCOUNTER FOR FULL-TERM UNCOMPLICATED DELIVERY Disposition: 29 yo F post 4 days from presents with Headache -In ER it was reported patient had severe elevated BP. yet when pt got to floor to triage it was noted patient had improper cuff size for patient body habitus and it was incorrectly placed. Once placed correctly with properly sized cuff BP have been ranging in 130's-140s. Pt CBC and CMP did not show any lab abnormalities for pre-E. Urine pr/cr ratio ordered and showed level of .08. Pt at this time does not show signs of Pre-E. At this time will monitor BP for 4 hours. If spikes severe range will start Mg. -Will tx headache w/ IV benadryl and Reglan at this time. Discussion: Date/Time: 01/01/20 0428 This H&P was discussed with [] and [] who agree with the above documentation and plan. Addendum - Attending - Attending Attestation Date/Time: 01/01/20 3885 I personally evaluated the patient and discussed the management with Dr. Campos. Pt. of Dr. Logan now PP seen in ER c/o of CAMP with single elevated BP there. Labs and BP here are WNL. Will tx. for CAMP at this time. I agree with the History, Examination, Assessment and Plan documented above.
[2020-01-01] MEDS: diphenhydrAMINE 50 MG/ML VIAL IVP SCH ×2 (04:50→05:50)
[2020-01-01] MEDS: Metoclopramide HCl 10 MG/2 ML VIAL IVP SCH ×3 (04:50→05:50)
--- NOTE | 2020-01-01 09:41 | PDOC.BPN ---
- Brief Progress Note Patient had one severe SBP 171.Reported headache still present but intermittent and improved rated 1/10 currently. Denies epigastric pain, vision changes, LE edema worse than normal. No hyperreflexia of DTRs on my exam. Repeat BPs were all <160/<110. Discussed that headaches sometimes difficult to treat because can have poor specificity. Discussed trying motrin (patient endorsed she had rx at home) at home, since clinically she feels well. Since techincally patient already discharged she is agreeable to going home with observation of headache after trying motrin. Will make follow up appointment with provider in 48 hours for BP check. Discussed return symptoms including worsening of headache or other accompanied preE symptoms Patient comfortable with plan and all questions answered. Discussed with Dr. Saldana
== END 2020-01-01 09:30 | disposition home or self-care (01) ==
LOC: ERS 00:56 → L&D/OP 03:04 → UNDOADMIN 03:37 → L&D 03:37 → L&D/OP 09:30
PROVIDERS: ATTEND Obstetrics & Gynecology
DX: O99.89 Other specified diseases and conditions complicating pregnancy, childbirth and the puerperium (principal); R51 Headache; R03.0 Elevated blood-pressure reading, without diagnosis of hypertension; O24.13 Pre-existing type 2 diabetes mellitus, in the puerperium; E11.9 Type 2 diabetes mellitus without complications; O99.03 Anemia complicating the puerperium; D59.1 Other autoimmune hemolytic anemias; Z79.4 Long term (current) use of insulin; Z91.041 Radiographic dye allergy status
CPT/HCPCS: 80053; 81003; 81015; 82570; 84156; 85025; J3475